=== PATIENT | female | born 1985 | race Caucasian/White ===

== ENCOUNTER 2019-01-21 08:18 | Outpatient (CLI) | payer OTHER, SELFPAY ==
[2019-01-21 09:03] LABS: HCT 40.6 % (36.0-46.0); HGB 12.9 g/dL (12.0-15.5); Mean Corp. HGB Concentration 31.8 g/dL (32.0-36.0); Mean Corpuscular Hemoglobin 26.1 pg (27.0-33.0); Mean Platelet Volume 11.1 fL (8.0-11.0); Platelet Count 313 x1000/uL (130-400); RBC 4.95 m/cumm (4.00-5.20); RBC Distribution Width 14.4 % (11.7-14.6); White Blood Cell Count 7.24 k/cumm (4.4-10.8)
[2019-01-21 10:00] LABS: ALT 23 U/L (12-78); AST 16 U/L (15-37); Albumin 3.7 g/dL (3.4-5.0); Alkaline Phosphatase 90 U/L (46-116); Anion Gap 7.4 mmol/L (3-11); BUN 13 mg/dL (7-18); Bilirubin, Total 0.6 mg/dL (0.2-1.0); CO2 28.6 mmol/L (21.0-32.0); CREATININE 0.75 mg/dL (0.55-1.02); Chloride 103 mmol/L (98-107); Cholesterol 189 mg/dL (50-200); Glucose 95 mg/dL (70-100); HDL Cholesterol 54 mg/dL (40-60); LDL CHOLESTEROL 120 mg/dL (<100); Potassium 4.5 mmol/L (3.5-5.1); Sodium 139 mmol/L (136-145); Total Protein 7.7 g/dL (6.4-8.2); Triglyceride 44 mg/dL (30-150)
[2019-01-21 10:31] LABS: TSH (W/Ref FT4) 1.39 uIU/mL (0.358-3.74); Vitamin B12 795 pg/mL (193-986)
== END 2019-01-21 08:38 ==
PROVIDERS: PCP Student in an Organized Health Care Education/Training Program; Visit Provider Student in an Organized Health Care Education/Training Program
DX: R03.0 Elevated blood-pressure reading, without diagnosis of hypertension (principal); Z13.220 Encounter for screening for lipoid disorders; R53.83 Other fatigue; Z86.39 Personal history of other endocrine, nutritional and metabolic disease; Z87.19 Personal history of other diseases of the digestive system
CPT/HCPCS: 36415; 80053; 80061; 83721; 85027; 82607; 84443

== ENCOUNTER 2019-01-27 01:14 | Outpatient (CLI) | payer OTHER, SELFPAY ==
--- NOTE | 2019-01-27 06:31 | DI.RAD_ITS ---
SYMPTOM/DIAGNOSIS: LT HIP PAIN, M25.552, ? BONY PATHOLOGY, MAY BE RELATED TO PRIOR ANKLE INJURY LEFT HIP AND PELVIS: No bony or joint abnormality is seen.
== END 2019-01-27 01:34 ==
PROVIDERS: PCP Student in an Organized Health Care Education/Training Program; Visit Provider Nurse Practitioner Adult Health
DX: M25.552 Pain in left hip (principal)
CPT/HCPCS: 73502

== ENCOUNTER 2019-08-14 00:10 | Outpatient (CLI) | payer OTHER, SELFPAY ==
[2019-08-14 11:08] LABS: Anion Gap 7.5 mmol/L (3-11); BUN 11 mg/dL (7-18); CO2 29.5 mmol/L (21.0-32.0); CREATININE 0.64 mg/dL (0.55-1.02); Calcium 9.1 mg/dL (8.5-10.1); Chloride 104 mmol/L (98-107); Glucose 86 mg/dL (70-100); Potassium 4.7 mmol/L (3.5-5.1); Sodium 141 mmol/L (136-145)
[2019-08-14 11:24] LABS: Ferritin 46 ng/mL (8-388); Magnesium 2.2 mg/dL (1.8-2.4)
[2019-08-16 07:14] LABS: Vitamin D 25 Total 29.6 ng/ml (30-100)
[2019-08-19 16:40] LABS: Insulin 5.1 uIU/mL (<29.0)
[2019-08-20 11:56] LABS: Testosterone, Free 0.39 ng/dL (0.06-1.00); Testosterone, Total 28 ng/dL (8-60)
== END 2019-08-14 00:30 ==
PROVIDERS: Internal Medicine; PCP Student in an Organized Health Care Education/Training Program; Visit Provider Student in an Organized Health Care Education/Training Program
DX: G43.909 Migraine, unspecified, not intractable, without status migrainosus (principal); R25.2 Cramp and spasm; E55.9 Vitamin D deficiency, unspecified; Z86.2 Personal history of diseases of the blood and blood-forming organs and certain disorders involving the immune mechanism; E28.8 Other ovarian dysfunction
CPT/HCPCS: 36415; 80048; 82306; 84402; 84403; 82728; 83525; 83735

== ENCOUNTER 2020-01-10 08:21 | Outpatient (CLI) | payer OTHER, SELFPAY ==
[2020-01-12 23:10] LABS: SARS-CoV-2 RNA Undetected (Undetected); SARS-CoV-2 Specimen Source Nasopharynx
== END 2020-01-10 08:41 ==
PROVIDERS: PCP Student in an Organized Health Care Education/Training Program; Visit Provider Student in an Organized Health Care Education/Training Program
DX: Z20.828 Contact with and (suspected) exposure to other viral communicable diseases (principal)
CPT/HCPCS: U0003

== ENCOUNTER 2020-01-11 08:28 | Outpatient (CLI) | payer OTHER, SELFPAY ==
[2020-01-14 21:19] LABS: SARS-CoV-2 RNA Undetected (Undetected); SARS-CoV-2 Specimen Source Nasopharynx
== END 2020-01-11 08:48 ==
PROVIDERS: PCP Student in an Organized Health Care Education/Training Program; Visit Provider Student in an Organized Health Care Education/Training Program
DX: Z20.828 Contact with and (suspected) exposure to other viral communicable diseases (principal)
CPT/HCPCS: U0003

== ENCOUNTER 2020-05-04 03:08 | Outpatient (CLI) | payer OTHER, SELFPAY ==
[2020-05-04 12:55] LABS: Abs Immature Grans 0.01 10^3/uL (0.0-0.06); Absolute Basophil Count 0.05 10^3/uL (0.0-0.2); Absolute Eosinophil Count 0.27 10^3/uL (0.0-0.7); Absolute Lymphocyte Count 2.31 10^3/uL (1.2-3.4); Absolute Monocyte Count 0.64 10^3/uL (0.1-0.8); Basophils % 0.6; Eosinophils % 3.5; HCT 40.1 % (36.0-46.0); HGB 12.8 g/dL (11.2-15.7); Immature Grans % 0.1; Lymphocytes % 29.7; MCH 26.8 pg (27.0-33.0); MCHC 31.9 % (32.0-36.0); MCV 84.1 fL (80-95); MPV 10.8 fL (8.0-11.0); Monocytes % 8.2; Neutrophils % 57.9; Platelet Count 319 10^3/uL (130-400); RBC 4.77 10^6/uL (3.93-5.22); RDW 13.1 % (11.7-14.6); RDW-SD 40.5 fL; WBC 7.78 10^3/uL (4.4-10.8)
[2020-05-04 13:58] LABS: ALT 18 U/L (14-59); AST 12 U/L (15-37); Albumin 3.8 g/dL (3.4-5.0); Alkaline Phosphatase 82 U/L (46-116); Anion Gap 7.8 mmol/L (3-11); BUN 12 mg/dL (7-18); Bilirubin, Total 0.5 mg/dL (0.2-1.0); CO2 28.2 mmol/L (21.0-32.0); CREATININE 0.64 mg/dL (0.55-1.02); Calcium 9.2 mg/dL (8.5-10.1); Chloride 104 mmol/L (98-107); Glucose 113 mg/dL (74-106); Potassium 4.5 mmol/L (3.5-5.1); Sodium 140 mmol/L (136-145); Total Protein 7.2 g/dL (6.4-8.2)
== END 2020-05-04 03:28 ==
PROVIDERS: PCP Student in an Organized Health Care Education/Training Program; Visit Provider Student in an Organized Health Care Education/Training Program
DX: E46 Unspecified protein-calorie malnutrition (principal); E86.0 Dehydration; Z87.19 Personal history of other diseases of the digestive system; K52.82 Eosinophilic colitis; R10.9 Unspecified abdominal pain; T78.40XA Allergy, unspecified, initial encounter; Z86.2 Personal history of diseases of the blood and blood-forming organs and certain disorders involving the immune mechanism; D50.9 Iron deficiency anemia, unspecified
CPT/HCPCS: 36415; 80053; 85025

== ENCOUNTER 2020-11-29 01:26 | Outpatient (CLI) | payer OTHER, SELFPAY ==
--- NOTE | 2020-11-29 07:15 | DI.US_ITS ---
EXAM: US BREAST LT COMPLETE CLINICAL HISTORY: Left breast mass,N63.20. TECHNIQUE: Complete ultrasound of the left breast was performed. COMPARISON: Today's diagnostic mammogram was reviewed. FINDINGS: At the 12 o'clock position there is a 4 x 3 millimeter microcyst. At the 8 o'clock position there is another microcyst measuring 3 x 3 millimeters. At the 4 o'clock position there is a small 5 x 3 millimeter slightly lobulated nodule exhibiting slig htly increased through transmission and apparently corresponding to her palpable finding. This is pr obably a fibroadenoma but requires appropriate follow-up. IMPRESSION: At the 4 o'clock position there is a small 5 x 3 millimeters slightly lobulated nodule which correspo nds to a palpable finding and is probably a small fibroadenoma. There by small microcysts at the 12 o'clock and 8 o'clock positions also noted. Appropriate follow-up is repeat breast ultrasound in 3 months.. Given the density of this patient's fibroglandular tissue I recommend at that time that this be a bilateral complete breast ultrasound ex am. BI-RADS Category 3 - 3 month - Probably Benign Finding: Recommend follow-up mammography in 3 months Breast Density - Category C - Heterogeneously dense Breast density Category C or D implies that the patient has dense breast tissue. Dense breast tissue can make it harder to find cancer on a mammogram. Dense breast tissue is also associated with an incr eased risk of breast cancer. This information about the result of the mammogram report was provided to the patient to raise their awareness. Use this report when you speak with the patient about their risks for breast cancer, which includes their family history. At that time, you may recommend additional screening tests (Ultrasoun d or MRI) as these tests may add significant information. A negative radiographic report should not delay biopsy if a dominant or clinically suspicious mass is present. Up to ten percent of cancers are not identified on mammography. A negative report may reinforce clinical impression. Adenosis and dense breasts may obscure an underlying neoplasm. False positive reports average 6 to 10%. Patient will receive a letter notifying them of these results.
--- NOTE | 2020-11-29 11:01 | DI.MAMMO_ITS ---
EXAM: MG MAMMO DIAGNOSTIC BI CLINICAL HISTORY: BASELINE,DIAGNOSTIC, LT BREAST MASS. TECHNIQUE: Unilateral spot mammographic images were obtained with 3D Tomosynthesistechnique and util izing computer aided detection (CAD). COMPARISON: None. This is a baseline diagnostic mammogram FINDINGS: The fibroglandular tissue is dense, this decreasing the sensitivity mammogram for finding in underlyi ng lesions. There are no CAD designations. There are no obvious spiculated masses nor malignant-appearing microcalcification groups in either br east. There are no significant focal radiographic findings in the area of clinical concern in the le ft breast. There is no significant architectural distortion or skin thickening-traction. IMPRESSION: 1. Dense bilateral fibroglandular tissue. No obvious radiographic evidence of malignancy. 2. Left breast ultrasound performed today reveals a 6 x 3 millimeter nodule at the 4 o'clock position which corresponds to a palpable finding and is probably a fibroadenoma. Two benign micro cysts were also noted on ultrasound at the 12 o'clock and 8 o'clock positions Appropriate follow-up is repeat breast ultrasound in 3 months, earlier if clinically indicated. Given the density of this patient's fibroglandular tissue on mammography and her left breast ultrasou nd findings today, I recommend that her three-month follow-up PA bilateral breast ultrasound examinat ion. BI-RADS Category 3 - 3 month - Probably Benign Finding: Recommend follow-up mammography in 3 months Breast Density - Category C - Heterogeneously dense Breast density Category C or D implies that the patient has dense breast tissue. Dense breast tissue can make it harder to find cancer on a mammogram. Dense breast tissue is also associated with an incr eased risk of breast cancer. This information about the result of the mammogram report was provided to the patient to raise their awareness. Use this report when you speak with the patient about their risks for breast cancer, which includes their family history. At that time, you may recommend additional screening tests (Ultrasoun d or MRI) as these tests may add significant information. A negative radiographic report should not delay biopsy if a dominant or clinically suspicious mass is present. Up to ten percent of cancers are not identified on mammography. A negative report may reinforce clinical impression. Adenosis and dense breasts may obscure an underlying neoplasm. False positive reports average 6 to 10%. Patient will receive a letter notifying them of these results.
== END 2020-11-29 01:27 ==
LOC: DI 01:27
PROVIDERS: PCP Student in an Organized Health Care Education/Training Program; Visit Provider Surgery
DX: N63.23 Unspecified lump in the left breast, lower outer quadrant (principal); N60.12 Diffuse cystic mastopathy of left breast
CPT/HCPCS: 76642; 77062; 77066; G0279

== ENCOUNTER 2021-02-26 00:55 | Outpatient (CLI) | payer OTHER, SELFPAY ==
--- NOTE | 2021-02-26 | DI.US_ITS ---
Exam(s) US BREAST LT COMPLETE US BREAST RT COMPLETE EXAM: US BREAST BILATERAL COMPLETE CLINICAL HISTORY: Follow up on Breast fibroadenoma,BREAST MASS, N63.20, LT. TECHNIQUE: Complete ultrasound of both breast was performed including all 4 quadrants, the retroareo lar region, and the axillary regions COMPARISON: Prior baseline mammogram and left breast ultrasound performed 11/29/2020 reviewed.. FINDINGS: LEFT BREAST ULTRASOUND: At the 12 o'clock position there is a 4 x 2 millimeter microcyst again noted At the 8 o'clock position the previously present microcyst is no longer seen. At the 4 o'clock position the previously described 5 x 3 millimeters slightly lobulated well-defined nodule appears unchanged. This is either a small fibroadenoma or hemorrhagic microcyst. It has not increased or decreased in size. No significant findings in the immediate retroareolar region. No prominent abnormal looking lymph no cookie in the axilla. RIGHT BREAST ULTRASOUND: At the 12 o'clock position there is a 6 x 3 millimeters simple microcyst. At the 1 o'clock position there is a 7 x 4 millimeter microcyst. At the 2 o'clock position there is a 5 x 3 millimeter microcyst. At the 10 o'clock position there is a 3 millimeter microcyst. Also at 10 o'clock position is a 6 x 3 millimeters slightly lobulated wider than taller nodule is sli ghtly increased through transmission which is either hemorrhagic microcyst or small fibroadenoma. At the 11 o'clock position there is a 6 x 3 millimeter microcyst IMPRESSION: 1. Stable appearance of the previously described palpable 5 x 3 millimeter lobulated nodule 4 o'clock position of the left breast which is either a small fibroadenoma or hemorrhagic microcyst; less like ly more ominous pathology. 2. Today's ultrasound of the opposite-right breast reveals multiple benign microcysts and also a is w ider than taller 6 x 3 millimeter finding at the 10 o'clock position which is either hemorrhagic micr ocyst or fibroadenoma. Appropriate follow-up is repeat bilateral breast ultrasound in 6 months, with earlier imaging if a se lf detected breast change is noted. BI-RADS Category 3 - 6 month - Probably Benign Finding: Recommend follow-up BILATERAL BREAST ULTRASOU ND in 6 months Breast Density - Category C - Heterogeneously dense Breast density Category C or D implies that the patient has dense breast tissue. Dense breast tissue can make it harder to find cancer on a mammogram. Dense breast tissue is also associated with an incr eased risk of breast cancer. This information about the result of the mammogram report was provided to the patient to raise their awareness. Use this report when you speak with the patient about their risks for breast cancer, which includes their family history. At that time, you may recommend additional screening tests (Ultrasoun d or MRI) as these tests may add significant information. A negative radiographic report should not delay biopsy if a dominant or clinically suspicious mass is present. Up to ten percent of cancers are not identified on mammography. A negative report may reinforce clinical impression. Adenosis and dense breasts may obscure an underlying neoplasm. False positive reports average 6 to 10%. Patient will receive a letter notifying them of these results.
== END 2021-02-26 01:15 ==
PROVIDERS: PCP Student in an Organized Health Care Education/Training Program; Visit Provider Surgery
DX: N63.23 Unspecified lump in the left breast, lower outer quadrant (principal); N60.12 Diffuse cystic mastopathy of left breast; N63.11 Unspecified lump in the right breast, upper outer quadrant; N60.11 Diffuse cystic mastopathy of right breast
CPT/HCPCS: 76642

== ENCOUNTER 2021-12-19 01:46 | Outpatient (CLI) | payer OTHER, SELFPAY ==
--- NOTE | 2021-12-19 06:30 | DI.MAMMO_ITS ---
Exam(s) MAMMO SCREENING EXAM: MAMMO SCREENING CLINICAL HISTORY: screening,Z12,39. TECHNIQUE: Bilateral full field digital CC and MLO mammographic images were obtained with 3D tomosyn thesis and utilizing computer aided detection (CAD). COMPARISON: Prior mammograms were reviewed, the most recent being November 2020. Prior ultrasound examinations reviewed, most recent being 10/26/2021. That study revealed an unchang ed 5 x 3 millimeter nodule at the 4 o'clock position of the left breast. Also revealed benign-appear ing findings in the opposite-right breast FINDINGS: Fibroglandular tissue is again noted be moderately dense, this somewhat decreasing the sensitivity of the mammogram for finding hidden underlying lesions. There are no new spiculated masses nor malignant appearing microcalcification groups. There is no significant architectural distortion nor skin thickening-retraction. IMPRESSION: Dense bilateral foraminal and tissue. No obvious radiographic evidence of malignancy Given the density of her fibroglandular tissue and prior breast ultrasound findings I recommend foll ow-up bilateral breast ultrasound in 6 months, earlier if a self detected breast changes noted. BI-RADS Category 3 - 6 month - Probably Benign Finding: Recommend follow-up mammography in 6 months Breast Density - Category C - Heterogeneously dense Breast density Category C or D implies that the patient has dense breast tissue. Dense breast tissue can make it harder to find cancer on a mammogram. Dense breast tissue is also associated with an incr eased risk of breast cancer. This information about the result of the mammogram report was provided to the patient to raise their awareness. Use this report when you speak with the patient about their risks for breast cancer, which includes their family history. At that time, you may recommend additional screening tests (Ultrasoun d or MRI) as these tests may add significant information. A negative radiographic report should not delay biopsy if a dominant or clinically suspicious mass is present. Up to ten percent of cancers are not identified on mammography. A negative report may reinforce clinical impression. Adenosis and dense breasts may obscure an underlying neoplasm. False positive reports average 6 to 10%. Patient will receive a letter notifying them of these results.
== END 2021-12-19 02:06 ==
PROVIDERS: PCP Student in an Organized Health Care Education/Training Program; Visit Provider Surgery
DX: Z12.31 Encounter for screening mammogram for malignant neoplasm of breast (principal); R92.8 Other abnormal and inconclusive findings on diagnostic imaging of breast
CPT/HCPCS: 77063; 77067

== ENCOUNTER 2022-01-21 14:23 | Outpatient (REF) | payer OTHER, SELFPAY ==
--- NOTE | 2022-01-21 13:45 | PAPFT_PTH ---
PATIENT: Rosemary Jackson LOC: [facility] U#:[id number] AGE/SX: 36/F ROOM: RE01/21/[address]: Jo Medeiros : 1985 BED: DIS: 01/21/2022 SPEC #: [id number] RECD: 01/21/22 17:40 STATUS: MURRAY REQ #: [id number] ÁNGEL: 01/21/22 13:[address]: Jo Medeiros DEPT: [facility] Cytology RECD BY: Mary Guillermo ENTERED: 01/21/22 17:40 SP TYPE: PAPFT OTHR DR: Wanda Landrum DO Tissues: 1 - CX/ENDOCX FOR PAP SMEARS Procedures: PAP THIN PREP/UVM Screening HPV DNA PROBE Comments: [id number]
== END 2022-01-21 14:24 | disposition home or self-care (01) ==
LOC: LBN 14:23
PROVIDERS: PCP Student in an Organized Health Care Education/Training Program; Visit Provider Obstetrics & Gynecology Gynecology
DX: Z12.4 Encounter for screening for malignant neoplasm of cervix (principal); Z11.51 Encounter for screening for human papillomavirus (HPV)
CPT/HCPCS: 88142; 87624

== ENCOUNTER → 2022-03-13 08:33 | Outpatient (CLI) | payer OTHER, SELFPAY ==
--- NOTE | 2022-03-13 07:30 | DI.NM_ITS ---
Exam(s) NM HEPATOBILIARY CCK GRP EXAM: NM HEPATOBILIARY CCK GRP CLINICAL HISTORY: Postprandial pain and nausea,r11.0,r10.11. TECHNIQUE: Injected dose: 4.9 mCi Tc-99 mebrofenin Initial dynamic images: 60 minutes Post-Gallbladder fillin.02 mcg/kg CCK intravenously over a 15min infusion. Addition images: 20 minute dynamic during CCK administration. COMPARISON: US US ABDOMEN LIMITED from 03/12/2022 FINDINGS: There is normal uptake and excretion of radiopharmaceutical by the liver and ectopic is seen within t he gallbladder lumen at 16 minutes post injection. Following CCK infusion there is a low normal gallbladder ejection fraction of 46 percent demonstrated . Lower limits normal in our department is 35 percent. IMPRESSION: Negative study. No evidence of obstruction of the cystic duct and no evidence of obvious gallbladder dysfunction
== END ==
PROVIDERS: PCP Student in an Organized Health Care Education/Training Program; Visit Provider Surgery
DX: R10.11 Right upper quadrant pain (principal); R11.0 Nausea
CPT/HCPCS: 78227

== ENCOUNTER 2022-03-17 20:16 | Outpatient (REF) | payer OTHER, SELFPAY ==
[2022-03-17 20:24] LABS: Source Nasal/Nares
[2022-03-17 20:27] LABS: Abs Immature Grans 0.02 10^3/uL (0.0-0.06); Absolute Basophil Count 0.03 10^3/uL (0.0-0.2); Absolute Lymphocyte Count 2.81 10^3/uL (1.2-3.4); Absolute Monocyte Count 0.83 10^3/uL (0.1-0.8); Absolute Neutrophil Count 7.66 10^3/uL (1.2-6.7); Basophils % 0.3; Eosinophils % 1.7; HCT 39.6 % (36.0-46.0); HGB 12.4 g/dL (11.2-15.7); Immature Grans % 0.2; Lymphocytes % 24.3; MCH 26.4 pg (27.0-33.0); MCHC 31.3 % (32.0-36.0); MCV 84 fL (80-95); MPV 11.3 fL (8.0-11.0); Monocytes % 7.2; Neutrophils % 66.3; Platelet Count 310 10^3/uL (130-400); RDW 12.8 % (11.7-14.6); RDW-SD 39.3 fL; WBC 11.56 10^3/uL (4.4-10.8)
[2022-03-17 20:52] LABS: ALT 20 U/L (14-59); AST 12 U/L (15-37); Albumin 3.9 g/dL (3.4-5.0); Alkaline Phosphatase 71 U/L (46-116); Anion Gap 8.3 mmol/L (3-11); BUN 18 mg/dL (7-18); Bilirubin, Direct 0.1 mg/dL (0.0-0.2); Bilirubin, Total 0.4 mg/dL (0.2-1.0); CO2 28.7 mmol/L (21.0-32.0); CREATININE 0.8 mg/dL (0.55-1.02); Calcium 8.9 mg/dL (8.5-10.1); Chloride 102 mmol/L (98-107); Glucose 102 mg/dL (74-106); Lipase 71 U/L (73-393); Potassium 4.2 mmol/L (3.5-5.1); Sodium 139 mmol/L (136-145); Total Protein 7.4 g/dL (6.4-8.2)
[2022-03-18 13:07] LABS: COVID-19 PCR Negative (Negative)
[2022-03-20 13:14] LABS: Lab Add On Test DONE
== END 2022-03-17 20:17 | disposition home or self-care (01) ==
LOC: LBN 20:16
PROVIDERS: PCP Student in an Organized Health Care Education/Training Program; Visit Provider Surgery
DX: R10.11 Right upper quadrant pain (principal); R79.89 Other specified abnormal findings of blood chemistry; Z20.822 Contact with and (suspected) exposure to COVID-19; Z01.818 Encounter for other preprocedural examination; Z01.812 Encounter for preprocedural laboratory examination
CPT/HCPCS: 80048; 80076; 83690; 87635; 83735; 85025; 86618; 86674; 86784

== ENCOUNTER 2022-03-20 06:20 | Day surgery (SDC) | payer OTHER, SELFPAY ==
--- NOTE | 2022-03-20 06:19 | W.PM.ENDDOP ---
Date of service: 03/20/22 Time of Service: 07:47 Endoscopy Report DATE OF PROCEDURE: 03/20/22 PRE-OP DIAGNOSIS: Abdominal pain POST-OP DIAGNOSIS: same (gastritis, esophagitis) PROCEDURE: EGD with biopsies SURGEON: Andree Hale ANESTHESIA TYPE: General:No Airway PATHOLOGY: other (duodenal biopsy, antrum bx, GE junction bx) COMPLICATIONS: None DISPOSITION: same day INDICATIONS: Rosemary is a 36yo patient with subacute RUQ discomfort, with bloating, nausea, chills, and episodes of diarrhea... now on week 5 of feeling poorly. She is c/o fatigue, myalgia and loss of appetite. She has lost some weight and is developing an aversion to meals. Her US and HIDA were negative We discussed starting with an EGD to look for ulcers. The procedure was explained as well as risks and benefits Risks, benefits and complications have been reviewed. Complications include but are not limited to bleeding, pain, perforation, sore throat, aspiration, and adverse reaction to the medications. Questions were entertained and answered to their satisfaction and they wished to proceed. No guarantees were given or implied. Proceed with EGD under sedation FINDINGS: inflammation in the stomach and shallow ulcer at the pylorus PROCEDURE DESCRIPTION: After informed consent was obtained the patient was take to the procedure room and placed in a supine position. Monitors were applied and a time out was done. The patients name, date of , procedure type, allergies to medications and metal in their body was reviewed. A bite block was placed and the patient was sedated. Once sedated and comfortable the gastroscope was advanced through the oropharynx which was grossly normal into the esophagus. The proximal and mid-esophagus were normal. In the distal esophagus there was mild inflammation noted. The scope was advanced into the stomach and through the pylorus into the 3rd portion of the duodenum. The duodenum was noted to be normal. Biopsies were done to rule out celiac disease. The scope was retracted back into the stomach. There were multiple small, benign appearing polyps. A few of them were biopsied. Biopsies of the antrum were done to rule out H. pylori. There was one shallow ulcer at the pylorus which was biopsied. The scope was retroflexed. The cardia and fundus were noted to be normal. The scope was retracted back into the esophagus and biopsies were done of the GE junction to rule out Us's. The Z line was irregular. The GE junction was at 35 cm. The scope was removed and the patient was woken up and taken back to [facility] in stable condition.
--- NOTE | 2022-03-20 06:22 | HPE_ITS ---
Assessment and Plan Assessment and plan (1) RUQ discomfort: Status: Acute Assessment and plan: Rosemary is a 36yo patient with subacute RUQ discomfort, with bloating, nausea, chills, and episodes of diarrhea... now on week 5 of feeling poorly. She is c/o fatigue, myalgia and loss of appetite. She has lost some weight and is developing an aversion to meals. Her US and HIDA were negative We discussed starting with an EGD to look for ulcers. The procedure was explained as well as risks and benefits Risks, benefits and complications have been reviewed. Complications include but are not limited to bleeding, pain, perforation, sore throat, aspiration, and adverse reaction to the medications. Questions were entertained and answered to their satisfaction and they wished to proceed. No guarantees were given or implied. Proceed with EGD under sedation (2) Diarrhea: Status: Acute (3) Nausea: Status: Acute History of Present Illness Narrative: Rosemary is a 36yo patient with subacute RUQ discomfort, with bloating, nausea, chills, and episodes of diarrhea... now on week 5 of feeling poorly. She is c/o fatigue, myalgia and loss of appetite. She has lost some weight and is developing an aversion to meals. US/HIDA were both normal. 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 now developing diarrhea. She denies a hx of chest pain, palpitations or SOB with walking. Review of Systems All systems reviewed & are unremarkable except as noted in HPI and below PFSH All Active Problems Change in bowel function (Acute) Diarrhea (Acute) Loose stool, multiple BMs, with intermittent diarrhea Migraine headache (Chronic) Vitamin D deficiency (Acute) Genital herpes (Acute) Hx of corneal abrasion (Chronic 08/2017) Ophtho ruled out Pit Adenoma, but noted OPTIC NERVE CUPPING. FOllow up needed. 07/07 FU scanned Candidiasis (Chronic) Near-monthly with menses.. Rosacea (Acute) Mild, seen by Derm 08/2019. Encounter for screening for other viral diseases (Acute) Abnormalities of hair (Acute) 08/29/20 Dr Rosales Hirsutism (Acute) 08/29/20 Dr Rosales - laser treatment Left breast mass (Acute) Menses, irregular (Acute) RUQ discomfort (Acute) Nausea (Acute) Postprandial distress syndrome (Acute) Medical History Bladder infection Colitis GERD (gastroesophageal reflux disease) IBS (irritable bowel syndrome) Pt. denies this Whooping cough Family History Father Hypertension Stroke Afib Hepatitis A Diabetes Mother Hypertension Multiple sclerosis Osteoarthritis Paternal Grandfather CAD (coronary artery disease) Myocardial infarction Diabetes Hypertension Paternal Grandmother Hypertension ESRD (end stage renal disease) Maternal Grandfather No problems noted. 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, [employer] Current gender identity: female What is your relationship status?: Panel score (0-1 are the most socially isolated patients): 1 What type of physical activity do you participate in: none Do you feel safe at home: Yes Do you feel safe in your relationship?: Yes History History 0 Para Hx # Term Pregnancies Multiple births Hx # Pregnancies Ectopic pregnancies AB induced Hx Number of Living Children AB spontaneous Meds Allergies and Home Medications Allergies Allergy/AdvReac Type Severity Reaction Status Date / Time Penicillins Allergy Severe Anaphylaxis Verified 03/20/22 06:29 Sulfa (Sulfonamide Allergy Rash Verified 03/20/22 06:29 Antibiotics) Home Medications Medication Instructions Recorded Confirmed Type carboxymethylcellulose sodium 1 % 1 drp ophthalmic (eye) 4-6XD PRN 12/24/18 03/19/22 History eye liquid gel drops (Lubricant Dry Eye Relief) cetirizine 10 mg tablet (Zyrtec) 10 mg PO DAILY 12/24/18 03/20/22 History artificial tears(hypromellose) 0.3 1 drp ophthalmic (eye) HS 09/16/19 03/19/22 History % eye gel (Systane Gel) biotin 5 mg tablet 5 mg PO DAILY 09/16/19 03/20/22 History cholecalciferol (vitamin D3) 25 2,000 unit PO DAILY 09/16/19 03/20/22 History mcg (1,000 unit) capsule vitamins no.121-iron 28 1 tab PO DAILY 09/16/19 03/20/22 History mg-folic acid 800 mcg tablet cyclobenzaprine 10 mg tablet 10 mg PO HS PRN muscle spasm #10 11/26/19 03/19/22 Rx tabs fluconazole 150 mg tablet 150 mg PO Q72H PRN recurrent 10/10/20 03/19/22 Rx vaginal candidiasis assoc with menses. #10 tabs esomeprazole magnesium 20 mg 20 mg PO DAILY #90 caps 07/25/21 03/20/22 Rx capsule,delayed release (Nexium) metformin 500 mg tablet 500 mg PO BID #60 tabs 01/21/22 03/19/22 Rx ondansetron 4 mg disintegrating 1 tab PO PRN PRN 03/20/22 03/20/22 History tablet Exam Const General: comfortable and no acute distress Orientation: alert and oriented x3 HENMT Head: normocephalic and atraumatic Resp Effort & Inspection: normal respiratory effort Auscultation: clear to auscultation bilaterally Cardio Rate: regular rate Rhythm: regular rhythm Heart Sounds: no gallops, no murmurs and no rubs GI Palpation: soft, no hepatosplenomegaly and tender in the epigastrum and in the RUQ
--- NOTE | 2022-03-20 06:24 | ANES.PREOP_ITS ---
General Info Date of Service Date Performed: 03/20/22 Height: 5 ft 3.5 in Weight: 77.337 kg Body Mass Index (BMI): 29.7 Surgical Procedure: Operation Date: 03/20/22 07:35 Proposed Procedure Side Surgeon p Gastroscopy Andree Hale MD Meds Allergies and Home Medications Allergies Allergy/AdvReac Type Severity Reaction Status Date / Time Penicillins Allergy Severe Anaphylaxis Verified 03/20/22 06:29 Sulfa (Sulfonamide Allergy Rash Verified 03/20/22 06:29 Antibiotics) Home Medication Medication Instructions Recorded carboxymethylcellulose sodium 1 % 1 drp ophthalmic (eye) 4-6XD PRN 12/24/18 eye liquid gel drops (Lubricant Dry Eye Relief) cetirizine 10 mg tablet (Zyrtec) 10 mg PO DAILY 12/24/18 artificial tears(hypromellose) 0.3 1 drp ophthalmic (eye) HS 09/16/19 % eye gel (Systane Gel) biotin 5 mg tablet 5 mg PO DAILY 09/16/19 cholecalciferol (vitamin D3) 25 2,000 unit PO DAILY 09/16/19 mcg (1,000 unit) capsule vitamins no.121-iron 28 1 tab PO DAILY 09/16/19 mg-folic acid 800 mcg tablet cyclobenzaprine 10 mg tablet 10 mg PO HS PRN muscle spasm #10 11/26/19 tabs fluconazole 150 mg tablet 150 mg PO Q72H PRN recurrent 10/10/20 vaginal candidiasis assoc with menses. #10 tabs esomeprazole magnesium 20 mg 20 mg PO DAILY #90 caps 07/25/21 capsule,delayed release (Nexium) metformin 500 mg tablet 500 mg PO BID #60 tabs 01/21/22 ondansetron 4 mg disintegrating 1 tab PO PRN PRN 03/20/22 tablet Current Visit Medications: Current Medications Generic Name Dose Route Start Last Admin Trade Name Freq PRN Reason Stop Dose Admin Ringer's Solution 1,000 mls @ 80 mls/hr 03/20/22 06:00 IV 04/18/22 23:59 INFUSION QUINTON IV Miscellaneous Supplies 1 each 03/20/22 06:00 Iv Access IV 04/18/22 23:59 DIRECTED QUINTON Sodium Chloride 0 ml 03/20/22 06:00 Normal Saline Flush 10 Ml Syr IV 04/18/22 23:59 PRN PRN Sodium Chloride 0 ml 03/20/22 06:00 Normal Saline 10 Ml Vial IJ 04/18/22 23:59 DIRECTED PRN Sterile Water 0 ml 03/20/22 06:00 Water,Injection,Sterile 10 Ml Vial IJ 04/18/22 23:59 DIRECTED PRN PFSH Active Problems Active Problems: Problem Status Onset Code Change in bowel function R19.8 Diarrhea R19.7 Migraine headache G43.909 Vitamin D deficiency E55.9 Genital herpes A60.00 History of colitis 2016 Z87.19 Hx of corneal abrasion 08/2017 Z87.828 Candidiasis B37.9 Rosacea L71.9 Encounter for screening for other viral diseases Z11.59 Abnormalities of hair L67.9 Hirsutism L68.0 Left breast mass N63.20 Menses, irregular N92.6 RUQ discomfort R10.11 Nausea R11.0 Postprandial distress syndrome K30 Medical History Medical History Bladder infection Colitis GERD (gastroesophageal reflux disease) IBS (irritable bowel syndrome) Pt. denies this Whooping cough Tobacco Smoking/Tobacco Use Status: Never Alcohol Alcohol Intake: current Alcohol intake frequency: a few times a month Alcohol type: wine Substance Use Substance use: Never Substance use type: does not use Prental History History 0 Para Hx # Term Pregnancies Multiple births Hx # Pregnancies Ectopic pregnancies AB induced Hx Number of Living Children AB spontaneous Vital Signs and Lab Results Lab Results Blood Type / Crossmatch: No Data to Display Complete Blood Count: White Blood Count 11.56 10^3/uL (4.4-10.8) H 03/17/22 19:50 Red Blood Count 4.70 10^6/uL (3.93-5.22) 03/17/22 19:50 Hemoglobin 12.4 g/dL (11.2-15.7) 03/17/22 19:50 Hematocrit 39.6 % (36.0-46.0) 03/17/22 19:50 Platelet Count 310 10^3/uL (130-400) 03/17/22 19:50 Complete Metabolic Panel: Sodium Level 139 mmol/L (136-145) 03/17/22 19:50 Potassium Level 4.2 mmol/L (3.5-5.1) 03/17/22 19:50 Chloride Level 102 mmol/L (98-107) 03/17/22 19:50 Carbon Dioxide Level 28.7 mmol/L (21.0-32.0) 03/17/22 19:50 Blood Urea Nitrogen 18 mg/dL (7-18) 03/17/22 19:50 Creatinine 0.8 mg/dL (0.55-1.02) 03/17/22 19:50 Estimated GFR/1.73 m2 >= 60.00 (mL/min/1.73m2) 03/17/22 19:50 Magnesium Level 2.0 mg/dL (1.8-2.4) 03/17/22 19:50 Calcium Level 8.9 mg/dL (8.5-10.1) 03/17/22 19:50 Albumin 3.9 g/dL (3.4-5.0) 03/17/22 19:50 Glucose Level 102 mg/dL (74-106) 03/17/22 19:50 Liver Function Panel: Alanine Aminotransferase (ALT/SGPT) 20 U/L (14-59) 03/17/22 19: 50 Aspartate Amino Transf (AST/SGOT) 12 U/L (15-37) L 03/17/22 19: 50 Coagulation Panel: No Data to Display Cardiac Panel: No Data to Display Arterial Blood Gas: No Data to Display Venous Blood Gas: No Data to Display Pancreas Panel: Lipase 71 U/L (73-393) 03/17/22 19:50 Thyroid Panel: No Data to Display Infectious Disease: Coronavirus (COVID-19)(PCR) Negative (Negative) 03/17/22 19:33 Coronavirus 2019 Source Nasal/Nares 03/17/22 19:33 Blood Cultures: No Data to Display Toxicology Panel: No Data to Display Panel: No Data to Display Anesthesia Assessment and Plan Anesthesia History Personal History: No History of Anesthesia Complications Family History: No Family History of Anesthesia Complications Exercise Tolerance Exercise Tolerance: Metabolic Equivalents>4 Pertinent Negatives Pertinent Negatives: No Symptoms of GERD, No Major Cardiovascular Symptoms or Complaints, No Major Pulmonary Symptoms or Complaints and No History of CVA/TIA Cardiac & Pulmonary Exam Cardiac Exam: Normal S1/S2 Heart Sounds Pulmonary Exam: Clear Bilateral Breath Sounds Implantable Cardiac Device Does patient have a Pacemaker or an ICD?: No Airway Exam Known Difficult Airway: No Mallampati Class: 3 Mouth Opening: Normal (> 3cm) Thyromental Distance: Less than 3 cm Neck Range of Motion: Full ROM Neck Circumference: Normal Teeth Condition: Normal Dentition ASA Classification ASA Score: ASA 2 Emergency Case?: No NPO Status NPO Status: NPO Clears >2 hours, Solids >8 hours Status Status: Negative HCG Anesthesia Plan Resuscitation Status: Full Code Anesthesia Technique: General Anesthesia Airway Planned: Natural Airway Monitors Used: Standard Monitors
--- NOTE | 2022-03-20 06:29 | W.PM.DSUDISC ---
Discharge Plan Disposition Patient Disposition: HOME Condition: Good Discharge Details Reason For Visit: EGD Attending Provider: Andree Hale Primary Care Provider: Wanda Landrum Home Meds and New Rx's Prescriptions: New sucralfate [Carafate] 1 gram tablet 1 g PO QACHS 14 Days Qty: 56 0RF Rx Instructions: Take before meals and at bedtime Continued cetirizine [Zyrtec] 10 mg tablet 10 mg PO DAILY Lubricant Dry Eye Relief 1 % drops, liquid gel 1 drp OP 4-6XD PRN PNV no.[id number] acid 28 mg iron- 800 mcg tablet 1 tab PO DAILY Label Comments: Chewable metformin 500 mg tablet 500 mg PO BID Qty: 60 3RF biotin 5 mg tablet 5 mg PO DAILY Rx Instructions: Pt uses chews. cholecalciferol (vitamin D3) 1,000 unit capsule 2,000 unit PO DAILY Label Comments: Chewable Systane Gel 0.3 % gel 1 drp OP HS Label Comments: 09/15/19 Opthalmology recommended cyclobenzaprine 10 mg tablet 10 mg PO HS PRN (Reason: muscle spasm) Qty: 10 1RF fluconazole 150 mg tablet 150 mg PO Q72H PRN (Reason: recurrent vaginal candidiasis assoc with menses.) Qty: 10 5RF Rx Instructions: take one tablet with onset of sx, may repeat in 72hrs if sx persist. ondansetron 4 mg tablet,disintegrating 1 tab PO PRN PRN Changed esomeprazole magnesium [Nexium] 20 mg capsule,delayed release(DR/EC) 40 mg PO DAILY Qty: 90 3RF Discharge Instructions Instructions: Diet for Stomach Ulcers and Gastritis (ED), Gastritis (DC), Gastric Polyps (DC) Additional Instructions: Findings: mild inflammation in the stomach, small ulcer above the pylorus Follow up: I will chat with you as soon as I have your biopsy results Please call if you develop: fevers >101.5 Nausea or Vomiting Abdominal pain that is not transient Rectal bleeding that is more then a tbsp A hard abdomen and inability to pass gas DAY SURGERY UNIT POST ENDOSCOPY INSTRUCTIONS Instructions for everyone who is given Anesthesia: For your safety, please do the following for the next 24 Hours: a. Do not drive or operate dangerous equipment b. Do not drink alcohol beverages or use any recreational drugs for the first 24 hours or while taking pain medications. The medications in your body may have a reaction that can be dangerous. c. Do not make any important decisions or sign any important papers 1. Generally there are no restrictions on your activity after a day or so has gone by, but you may feel a bit fatigued for a few days. 2. After you arrive home you may have a light meal and return to a normal diet as you can tolerate it without feeling sick to your stomach. 3. After surgery, you may feel pain or discomfort. This should be only transient, but if it persists please contact your doctor. 4. If there are any questions regarding the findings of your procedure, please feel free to contact your doctor. 6. If you are unable to contact your doctor with a problem, contact the hospital at [phone]. 7. Continue all your regular medications unless directed otherwise. I understand the above instructions and have no questions. Signature of Patient or Responsible Adult Escort Date/Time Name of Responsible Adult Escort Signature of Nurse Date/Time Activity:: Activity as Tolerated Diet:: low acid Discharge Orders Discharge Orders: Discharge Order (Routine); Ordered 03/20/22 Ordered By: Andree Hale DS: Diagnosis Discharge Diagnosis (1) RUQ discomfort: Status: Acute (2) Diarrhea: Status: Acute (3) Nausea: Status: Acute
[2022-03-20 06:32] VITALS: BP 116/91; PULSE 84; RESP 16; TEMP 37; O2SAT 100
[2022-03-20] MEDS: Lactated Ringers 1,000 ML 80 ML IV (06:50)
[2022-03-20 06:52] VITALS: BMI 29.7
--- NOTE | 2022-03-20 07:31 | STOM_PTH ---
PATIENT: Rosemary Jackson LOC: [facility] U#:[id number] AGE/SX: 36/F ROOM: RE03/20/[address]: Andree Hale MD : 1985 BED: DIS: 03/20/2022 SPEC #: [id number] RECD: 03/20/22 12:44 STATUS: MURRAY REQ #: [id number] ÁNGEL: 03/20/22 07:[address]: Andree Hale DEPT: Surgical Specimen RECD BY: Mary Guillermo ENTERED: 03/20/22 12:46 SP TYPE: STOMACH OTHR DR: Wanda Landrum DO Tissues: 1 - BIOPSY BOWEL 2 - STOMACH BIOPSY 3 - STOMACH BIOPSY 4 - STOMACH BIOPSY 5 - ESOPHAGUS BIOPSY Procedures: GROSS AND MICRO LEVEL 4 Comments: [id number]
[2022-03-20 07:42] VITALS: BP 118/89; PULSE 89; RESP 16; TEMP 36.1; O2SAT 97
[2022-03-20 08:19] VITALS: BP 130/86; PULSE 75; RESP 16; TEMP 37; O2SAT 100
[2022-03-20 08:48] LABS: Abs Immature Grans 0.01 10^3/uL (0.0-0.06); Absolute Basophil Count 0.03 10^3/uL (0.0-0.2); Absolute Lymphocyte Count 1.51 10^3/uL (1.2-3.4); Absolute Monocyte Count 0.47 10^3/uL (0.1-0.8); Absolute Neutrophil Count 4.27 10^3/uL (1.2-6.7); Basophils % 0.5; Eosinophils % 1.6; HCT 39.3 % (36.0-46.0); HGB 12.4 g/dL (11.2-15.7); Immature Grans % 0.2; Lymphocytes % 23.6; MCH 26.7 pg (27.0-33.0); MCHC 31.6 % (32.0-36.0); MCV 85 fL (80-95); MPV 11.2 fL (8.0-11.0); Monocytes % 7.4; Neutrophils % 66.7; Platelet Count 279 10^3/uL (130-400); RBC 4.64 10^6/uL (3.93-5.22); RDW 12.8 % (11.7-14.6); RDW-SD 39.5 fL; WBC 6.39 10^3/uL (4.4-10.8)
--- NOTE | 2022-03-20 08:54 | W.ANESPOSTOP ---
Postoperative Evaluation Date, Time and Location Date Performed: 03/20/22 Time Performed: 08:54 Patient Location: Day Surgery Unit Vital Signs Most Recent Imported Vital Signs: Most Recent Vital Signs Temp Pulse Resp BP Pulse Ox 37 C 75 16 130/86 100 03/20/22 08:19 03/20/22 08:19 03/20/22 08:19 03/20/22 08:19 03/20/22 08:19 Pain Score Most Recent Pain Score: Most Recent Pain Score Pain Level 4 03/20/22 08:19 Assessment Mental Status: Awake (Alert & Oriented to Patient Baseline) Airway and Respiratory Function: Patent airway with normal (patient baseline) respiratory exam Cardiovascular Function: Hemodynamically Stable Hydration Status: Adequately Hydrated Nausea & Vomiting: No Nausea or Vomiting Pain: Pt. Denies Any Pain Peripheral Nerve Block: Patient did not receive a nerve block Postoperative Comments:: Patient seen earlier today prior to discharge. Delay on documentation due to lack of postoperative vital signs inputed into EMR. Patient questions answered and was appropriate to go home.
[2022-03-20 22:39] LABS: CRP, High Sensitivity 0.86 mg/L (See Note)
[2022-03-21 11:02] LABS: Lyme Ab w Rflx to Lyme Confirm Negative (Negative)
[2022-03-21 20:08] LABS: Trichinella Antibody IgG Negative (Negative)
[2022-03-23 14:27] LABS: Anaplasma phagocytophilum Negative (Negative); B. miyamotoi PCR Negative (Negative); Babesia divergens/MO-1 Negative (Negative); Babesia duncani Negative (Negative); Babesia microti Negative (Negative); Ehrlichia chaffeensis Negative (Negative); Ehrlichia ewingii/canis Negative (Negative); Ehrlichia muris eauclairensis Negative (Negative)
== END 2022-03-20 08:56 | disposition home or self-care (01) ==
PROVIDERS: PCP Student in an Organized Health Care Education/Training Program; Visit Provider Surgery
PROC: 0DJ68ZZ Inspection of Stomach, Via Natural or Artificial Opening Endoscopic (ICD-10-PCS; CPT 43235; principal; 2022-03-20 07:30)
DX: K25.9 Gastric ulcer, unspecified as acute or chronic, without hemorrhage or perforation (principal); R19.7 Diarrhea, unspecified; K31.7 Polyp of stomach and duodenum; K29.70 Gastritis, unspecified, without bleeding; K20.90 Esophagitis, unspecified without bleeding; G43.909 Migraine, unspecified, not intractable, without status migrainosus; E55.9 Vitamin D deficiency, unspecified; K31.89 Other diseases of stomach and duodenum; K22.89 Other specified disease of esophagus
CPT/HCPCS: 43239; 36415; 81025; 86141; 87798; 88305; 85025; 86618; 86674; 86784

== ENCOUNTER 2022-03-21 17:44 | Outpatient (REF) | payer OTHER, SELFPAY ==
[2022-03-21 21:32] LABS: C Diff PCR Negative (Negative)
[2022-03-22 11:45] LABS: Campylobacter PCR Negative (Negative); Salmonella PCR Negative (Negative); Shiga Toxin PCR Negative (Negative); Shigella/Enteroinvasive Ecoli Negative (Negative)
[2022-03-27 17:08] LABS: Calprotectin <50.0 mcg/g
== END 2022-03-21 17:45 | disposition home or self-care (01) ==
LOC: LBN 17:44
PROVIDERS: PCP Student in an Organized Health Care Education/Training Program; Visit Provider Surgery
DX: R11.0 Nausea (principal); R19.7 Diarrhea, unspecified; R10.11 Right upper quadrant pain; R68.83 Chills (without fever); K86.89 Other specified diseases of pancreas; Z87.19 Personal history of other diseases of the digestive system
CPT/HCPCS: 87329; 87493; 87505; 87177

== ENCOUNTER 2022-03-22 08:43 | Outpatient (REF) | payer OTHER, SELFPAY | END 2022-03-22 08:44 | disposition home or self-care (01) | LOC: LBN 08:43 | PROVIDERS: PCP Student in an Organized Health Care Education/Training Program; Visit Provider Student in an Organized Health Care Education/Training Program | DX: R10.11 Right upper quadrant pain (principal); R19.7 Diarrhea, unspecified | CPT/HCPCS: 82710; 83993 ==

== ENCOUNTER 2022-03-23 11:49 | Emergency (ER) | payer OTHER, SELFPAY ==
[2022-03-23 12:06] VITALS: BP 146/94; PULSE 94; RESP 14; TEMP 37.1; O2SAT 100
--- NOTE | 2022-03-23 13:00 | DI.CT_ITS ---
Exam(s) CT ABDOMEN PELVIS W EXAM: CT ABDOMEN PELVIS W CLINICAL HISTORY: abdominal discomfort, hypoglycemia. TECHNIQUE: Imaging Protocol: Axial computed tomography images with coronal and sagittal reformatted images were created and reviewed CONTRAST MATERIAL: Intravenous: Omnipaque 350 Contrast volume:100 ml Oral: yes COMPARISON: No exams were available for comparison FINDINGS: Exam is limited by a motion artifact. ABDOMEN: Lung Bases: Patchy infiltrates left lower lobe. No effusion or pneumothorax. No pericardial effus ion. Liver: Normal density. No measurable mass. Gallbladder and biliary tract: No radiodense calculus or dilation. Pancreas: Normal density, no abnormal calcifications or inflammatory process. Spleen: Normal. Kidneys: Normal size, contour and axis. No radiodense stones or obstructive uropathy. No masses seen. Adrenal glands: No masses seen. Abdominal Aorta: Abdominal portion non-dilated. PELVIS: Bladder: No gross wall thickening. No calculi.No focal mass. Bowel: No obstruction or bowel wall thickening. Appendix normal. Peritoneal cavity: No ascites, collection or mesenteric inflammatory response. Bones: Within normal limits for age. Reproductive organs: Within normal limits. Lymph nodes: Unremarkable. Impression: Mild patchy left lower lobe infiltrates. Abdomen pelvic CT within normal limits. RADIATION DOSE DELIVERED: 989.43mGy.cm Total DLP DATA REPOSITORY: All CT scans at this facility are submitted to the National Radiology Data Registry (NRDR) Dose Index Registry (DIR) with the [employer] ([employer]). RADIATION OPTIMIZATION: All CT scans at this facility use at least one of these dose optimization te chniques: automated exposure control; mA and/or kV adjustment per patient size (includes targeted exa ms where dose is matched to clinical indication); or iterative reconstruction.
[2022-03-23 13:41] LABS: Abs Immature Grans 0.03 10^3/uL (0.0-0.06); Absolute Basophil Count 0.04 10^3/uL (0.0-0.2); Absolute Eosinophil Count 0.04 10^3/uL (0.0-0.7); Absolute Lymphocyte Count 1.24 10^3/uL (1.2-3.4); Absolute Monocyte Count 0.73 10^3/uL (0.1-0.8); Absolute Neutrophil Count 8.13 10^3/uL (1.2-6.7); Basophils % 0.4; Eosinophils % 0.4; HCT 39.9 % (36.0-46.0); HGB 12.8 g/dL (11.2-15.7); Immature Grans % 0.3; Lymphocytes % 12.1; MCH 26.7 pg (27.0-33.0); MCHC 32.1 % (32.0-36.0); MCV 83 fL (80-95); Monocytes % 7.1; Neutrophils % 79.7; Platelet Count 295 10^3/uL (130-400); RDW 12.5 % (11.7-14.6); RDW-SD 38.3 fL; WBC 10.21 10^3/uL (4.4-10.8)
[2022-03-23 13:55] LABS: ALT 16 U/L (14-59); AST 10 U/L (15-37); Albumin 3.7 g/dL (3.4-5.0); Alkaline Phosphatase 67 U/L (46-116); Anion Gap 8.2 mmol/L (3-11); BUN 17 mg/dL (7-18); Bilirubin, Total 0.3 mg/dL (0.2-1.0); CO2 26.8 mmol/L (21.0-32.0); CREATININE 0.7 mg/dL (0.55-1.02); Calcium 9.2 mg/dL (8.5-10.1); Chloride 109 mmol/L (98-107); Glucose 127 mg/dL (74-106); Lipase 71 U/L (73-393); Potassium 4.2 mmol/L (3.5-5.1); Sodium 144 mmol/L (136-145); Total Protein 7.7 g/dL (6.4-8.2)
--- NOTE | 2022-03-23 14:11 | W.ED.GENAD ---
Discharge Plan Disposition Patient Disposition: HOME Condition: Stable Discharge Details Clinical Impression: Low blood sugar reading, Infiltrate of lower lobe of left lung present on imaging study Primary Care Provider: Wanda Landrum ED Provider: [place] Home Meds and New Rx's Prescriptions: Continued cetirizine [Zyrtec] 10 mg tablet 10 mg PO DAILY Lubricant Dry Eye Relief 1 % drops, liquid gel 1 drp OP 4-6XD PRN PNV no.[id number] acid 28 mg iron- 800 mcg tablet 1 tab PO DAILY Label Comments: Chewable biotin 5 mg tablet 5 mg PO DAILY Rx Instructions: Pt uses chews. cholecalciferol (vitamin D3) 1,000 unit capsule 2,000 unit PO DAILY Label Comments: Chewable Systane Gel 0.3 % gel 1 drp OP HS Label Comments: 09/15/19 Opthalmology recommended cyclobenzaprine 10 mg tablet 10 mg PO HS PRN (Reason: muscle spasm) Qty: 10 1RF fluconazole 150 mg tablet 150 mg PO Q72H PRN (Reason: recurrent vaginal candidiasis assoc with menses.) Qty: 10 5RF Rx Instructions: take one tablet with onset of sx, may repeat in 72hrs if sx persist. ondansetron 4 mg tablet,disintegrating 1 tab PO PRN PRN sucralfate [Carafate] 1 gram tablet 1 g PO QACHS 14 Days Qty: 56 0RF Rx Instructions: Take before meals and at bedtime esomeprazole magnesium [Nexium] 20 mg capsule,delayed release(DR/EC) 40 mg PO DAILY Qty: 90 3RF Discontinued metformin 500 mg tablet 500 mg PO BID Qty: 60 3RF Discharge Instructions Additional Instructions: Chest imaging today revealed mild left lower lobe airspace disease. Please be sure to discuss this with your primary care physician follow-up. Use incentive spirometry every 2-3 hours while awake for the next week. Please follow-up with endocrinology. I recommend not starting metformin. Please contact your primary care physician to arrange follow-up. Return to the ER immediately for any worsening or new concerning symptoms. Referrals: [place] [place] - 1 week (Episodes of hypoglycemia) Discharge Data Discharge Date/Time-TO BE ENTERED AT DEPARTURE: 03/23/22 17:32 Medical Decision Making 1400 --36-year-old female with intermittent episodes of nausea, shaking chills that occur postprandially over the past 6 weeks as well as loose stool. Patient found to be hypoglycemic this morning and with inappropriately low blood sugar postprandially over the past 2 days. Patient has had significant recent work-up for GI illness including diagnostic labs, HIDA scan, abdominal ultrasound and endoscopy. Concern for potential inappropriate insulin secretion. Consider pancreatic mass. Plan to obtain CT of the abdomen pelvis. -- CT of the abdomen pelvis was interpreted by radiology:FINDINGS: Limitations: Motion artifact. Lungs: Left lower lobe airspace disease. No lung consolidation. Left lower lobe atelectasis. Liver: Normal. No mass. Gallbladder and bile ducts: Normal. No calcified stones. No ductal dilation. Pancreas: Normal. No ductal dilation. Spleen: Normal. No splenomegaly. Adrenal glands: Normal. No mass. Kidneys and ureters: Normal. No hydronephrosis. Stomach and bowel: Sigmoid colon diverticulosis. No dilated small are lateral to bowel loops. No bowel obstruction. Appendix: No evidence of appendicitis.EF Intraperitoneal space: Unremarkable. No free air. No significant fluid collection. Vasculature: Unremarkable. No abdominal aortic aneurysm. Lymph nodes: Unremarkable. No enlarged lymph nodes. Urinary bladder: Unremarkable as visualized. Reproductive: Midline uterus. No adnexal mass. Collapsing cyst right ovary measuring 17 mm. Bones/joints: Unremarkable. No acute fracture. Soft tissues: Unremarkable. IMPRESSION: 1. Left lower lobe pneumonia. 2. No acute abdominal or pelvic findings. CXR interpreted by radiology: Mild left lower lobe airspace disease. No lung consolidation. Left lower lobe pneumonia. Patient had normal blood sugar on chemistry and had two fingerstick blood sugars here that which were normal. Suspect malfunction of home glucometer. All results discussed with the patient. Patient denies cough and does not feel that she has pneumonia. She is concerned about potential aspiration pneumonitis post GI procedure. This certainly is a possibility. She declines antbiotic at this time but will monitor symptoms closely. Plan for dicharge with outpatient followup with PCP and endocrinaology. Disposition decision was made weighing the risks and benefits of hospitalization versus outpatient treatment, the risk for further decompensation, and the patient's wishes. The patient was stable. Prior to discharge, my usual and customary return precautions were reviewed with the patient - this included follow-up instructions and reason to return to the emergency department if condition worsens, does not improve as expected, or other new concerns arise. Medical Records Medical records reviewed: Yes I reviewed the patient's medical records. Lab Data Lab results reviewed: Yes I reviewed the patient's lab results. Labs: Laboratory Tests Range/Units 03/23/22 03/23/22 03/23/22 13:35 13:35 13:35 WBC (4.4-10.8) 10^3/uL 10.21 RBC (3.93-5.22) 10^6/uL 4.80 Hgb (11.2-15.7) g/dL 12.8 Hct (36.0-46.0) % 39.9 MCV (80-95) fL 83 MCH (27.0-33.0) pg 26.7 L MCHC (32.0-36.0) % 32.1 RDW (11.7-14.6) % 12.5 Plt Count (130-400) 10^3/uL 295 MPV (8.0-11.0) fL 11.0 Immature Gran % 0.3 Neutrophils % 79.7 Lymphocytes % 12.1 Monocytes % 7.1 Eosinophils % 0.4 Basophils % 0.4 Nucleated RBC % (0.0-0.3) % 0.0 Absolute Neutrophils (1.2-6.7) 10^3/uL 8.13 H Absolute Lymphocytes (1.2-3.4) 10^3/uL 1.24 Absolute Monocytes (0.1-0.8) 10^3/uL 0.73 Absolute Eosinophils (0.0-0.7) 10^3/uL 0.04 Absolute Basophils (0.0-0.2) 10^3/uL 0.04 Sodium (136-145) mmol/L 144 Potassium (3.5-5.1) mmol/L 4.2 Chloride (98-107) mmol/L 109 H Carbon Dioxide (21.0-32.0) mmol/L 26.8 Anion Gap (3-11) mmol/L 8.2 BUN (7-18) mg/dL 17 Creatinine (0.55-1.02) mg/dL 0.7 Estimated GFR/1.73 m2 (mL/min/1.73m2) >= 60.00 Glucose (74-106) mg/dL 127 H Calcium (8.5-10.1) mg/dL 9.2 Magnesium (1.8-2.4) mg/dL 2.0 Total Bilirubin (0.2-1.0) mg/dL 0.3 AST (15-37) U/L 10 L ALT (14-59) U/L 16 Alkaline Phosphatase (46-116) U/L 67 Total Protein (6.4-8.2) g/dL 7.7 Albumin (3.4-5.0) g/dL 3.7 Lipase (73-393) U/L 71 TSH (0.36-3.74) uIU/mL 0.71 HPI General Mode of arrival: ambulatory. Date/Time Provider Initiated Documentation: 03/23/22 12:19. Limitations to Documentation: no limitations. Information obtained by: patient. HPI Narrative: 36-year-old female presents with chief complaint of low blood sugar. Patient notes started to have episodes of shaking chills with associated nausea and loose stool postprandially at night about 6 weeks ago after returning from a trip to [facility]. She states she wakes up at night feeling nauseous and with chills. She notes intermittent episodes since initial. Episodes are always 1 to 3 hours postprandially. She also notes daily loose, foul-smelling and sticky stools that was persistent and now improving. She also notes that she had some tightness in her right upper quadrant. She has been seen by general surgery and had HIDA scan which is negative, right upper quadrant ultrasound which was negative, EGD which showed mild esophagitis and gastritis. Patient notes labs including LFTs and stool culture has been negative to date. Patient is concerned that she has had hypoglycemia recently. She notes she was feeling jittery and decided to check her blood sugar with her glucometer. She states that this morning blood sugar reading 50s - 60s. Postprandially yesterday blood sugar was in the 80s. She is concerned for potential for insulinoma or pancreatic disease. Related Data Home Medications Medication Instructions Recorded Confirmed carboxymethylcellulose sodium 1 % 1 drp ophthalmic (eye) 4-6XD PRN 12/24/18 03/23/22 eye liquid gel drops (Lubricant Dry Eye Relief) cetirizine 10 mg tablet (Zyrtec) 10 mg PO DAILY 12/24/18 03/23/22 artificial tears(hypromellose) 0.3 1 drp ophthalmic (eye) HS 09/16/19 03/23/22 % eye gel (Systane Gel) biotin 5 mg tablet 5 mg PO DAILY 09/16/19 03/23/22 cholecalciferol (vitamin D3) 25 2,000 unit PO DAILY 09/16/19 03/23/22 mcg (1,000 unit) capsule vitamins no.121-iron 28 1 tab PO DAILY 09/16/19 03/23/22 mg-folic acid 800 mcg tablet cyclobenzaprine 10 mg tablet 10 mg PO HS PRN muscle spasm #10 11/26/19 03/23/22 tabs fluconazole 150 mg tablet 150 mg PO Q72H PRN recurrent 10/10/20 03/23/22 vaginal candidiasis assoc with menses. #10 tabs esomeprazole magnesium 20 mg 40 mg PO DAILY #90 caps 03/20/22 03/23/22 capsule,delayed release (Nexium) ondansetron 4 mg disintegrating 1 tab PO PRN PRN 03/20/22 03/23/22 tablet sucralfate 1 gram tablet (Carafate) 1 g PO QACHS 14 days #56 tabs 03/20/22 03/23/22 Previous Rx's Medication Instructions Recorded cyclobenzaprine 10 mg tablet 10 mg PO HS PRN muscle spasm #10 11/26/19 tabs fluconazole 150 mg tablet 150 mg PO Q72H PRN recurrent 10/10/20 vaginal candidiasis assoc with menses. #10 tabs esomeprazole magnesium 20 mg 40 mg PO DAILY #90 caps 03/20/22 capsule,delayed release (Nexium) sucralfate 1 gram tablet (Carafate) 1 g PO QACHS 14 days #56 tabs 03/20/22 Allergies Allergy/AdvReac Type Severity Reaction Status Date / Time Penicillins Allergy Severe Anaphylaxis Verified 03/23/22 12:17 Sulfa (Sulfonamide Allergy Rash Verified 03/23/22 12:17 Antibiotics) General Stated Complaint: GenMedical LAMBERTO: 3 Review of Systems All systems reviewed & are unremarkable except as noted in HPI and below Constitutional Constitutional: Reports as per HPI Cardiovascular Cardiovascular: Denies chest pain Respiratory Respiratory: Denies cough Gastrointestinal Gastrointestinal: Reports as per HPI, Denies abdominal pain and Reports loose stools PFSH All Active Problems (Updated 03/23/22 @ 17:17 by [place] MD) Low blood sugar reading (Acute) Infiltrate of lower lobe of left lung present on imaging study (Acute) Change in bowel function (Acute) Diarrhea (Acute) Loose stool, multiple BMs, with intermittent diarrhea Migraine headache (Chronic) Vitamin D deficiency (Acute) Genital herpes (Acute) Hx of corneal abrasion (Chronic 08/2017) Ophtho ruled out Pit Adenoma, but noted OPTIC NERVE CUPPING. FOllow up needed. 07/07 FU scanned Candidiasis (Chronic) Near-monthly with menses.. Rosacea (Acute) Mild, seen by Derm 08/2019. Encounter for screening for other viral diseases (Acute) Abnormalities of hair (Acute) 08/29/20 Dr Rosales Hirsutism (Acute) 08/29/20 Dr Rosales - laser treatment Left breast mass (Acute) Menses, irregular (Acute) RUQ discomfort (Acute) Nausea (Acute) Postprandial distress syndrome (Acute) Medical History Bladder infection Colitis GERD (gastroesophageal reflux disease) IBS (irritable bowel syndrome) Pt. denies this Whooping cough Family History Father Hypertension Stroke Afib Hepatitis A Diabetes Mother Hypertension Multiple sclerosis Osteoarthritis Paternal Grandfather CAD (coronary artery disease) Myocardial infarction Diabetes Hypertension Paternal Grandmother Hypertension ESRD (end stage renal disease) Maternal Grandfather No problems noted. 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, [employer] Current gender identity: female What is your relationship status?: Panel score (0-1 are the most socially isolated patients): 1 What type of physical activity do you participate in: none Do you feel safe at home: Yes Do you feel safe in your relationship?: Yes History History 0 Para Hx # Term Pregnancies Multiple births Hx # Pregnancies Ectopic pregnancies AB induced Hx Number of Living Children AB spontaneous Exam Const General: cooperative and no acute distress HENMT Mouth: moist mucous membranes Eyes Conjunctivae: normal conjunctivae Sclera: normal sclerae Neck Neck: supple Thyroid: thyroid normal Resp Auscultation: clear to auscultation bilaterally, no rales, no rhonchi and no wheezes Cardio Rate: regular rate and not tachycardic Rhythm: regular rhythm GI Palpation: soft, not firm, no guarding, no masses, not rigid and nontender Skin General skin exam: no rashes or lesions noted Neuro General: patient alert, patient awake and tone normal Extrem General: no edema Psych Appearance: grossly normal Mental Status: mental status grossly normal Course Vital Signs Vital signs: Vital Signs Temperature 37.1 C 03/23/22 12:06 Pulse 94 H 03/23/22 12:06 Respiratory Rate 14 03/23/22 12:06 Blood Pressure 146/94 H 03/23/22 12:06 Pulse Oximetry 100 03/23/22 12:06 Temperature 37.1 C 03/23/22 12:06 Temperature Source Skin 03/23/22 12:06 Pulse 94 H 03/23/22 12:06 Respiratory Rate 14 03/23/22 12:06 Blood Pressure 146/94 H 03/23/22 12:06 Blood Pressure Position Sitting 03/23/22 12:06 Pulse Oximetry 100 03/23/22 12:06 Oxygen Delivery Method Room Air 03/23/22 12:06 Oxygen Flow Rate 0 03/23/22 12:06 Pain Level 0 03/23/22 12:06 Comment 03/23/22 12:06 Lab/Test Results Lab/Test Results: Laboratory Tests Range/Units 03/23/22 03/23/22 13:35 13:35 WBC (4.4-10.8) 10^3/uL 10.21 RBC (3.93-5.22) 10^6/uL 4.80 Hgb (11.2-15.7) g/dL 12.8 Hct (36.0-46.0) % 39.9 MCV (80-95) fL 83 MCH (27.0-33.0) pg 26.7 L MCHC (32.0-36.0) % 32.1 RDW (11.7-14.6) % 12.5 Plt Count (130-400) 10^3/uL 295 MPV (8.0-11.0) fL 11.0 Immature Gran % 0.3 Neutrophils % 79.7 Lymphocytes % 12.1 Monocytes % 7.1 Eosinophils % 0.4 Basophils % 0.4 Nucleated RBC % (0.0-0.3) % 0.0 Absolute Neutrophils (1.2-6.7) 10^3/uL 8.13 H Absolute Lymphocytes (1.2-3.4) 10^3/uL 1.24 Absolute Monocytes (0.1-0.8) 10^3/uL 0.73 Absolute Eosinophils (0.0-0.7) 10^3/uL 0.04 Absolute Basophils (0.0-0.2) 10^3/uL 0.04 Sodium (136-145) mmol/L 144 Potassium (3.5-5.1) mmol/L 4.2 Chloride (98-107) mmol/L 109 H Carbon Dioxide (21.0-32.0) mmol/L 26.8 Anion Gap (3-11) mmol/L 8.2 BUN (7-18) mg/dL 17 Creatinine (0.55-1.02) mg/dL 0.7 Estimated GFR/1.73 m2 (mL/min/1.73m2) >= 60.00 Glucose (74-106) mg/dL 127 H Calcium (8.5-10.1) mg/dL 9.2 Magnesium (1.8-2.4) mg/dL 2.0 Total Bilirubin (0.2-1.0) mg/dL 0.3 AST (15-37) U/L 10 L ALT (14-59) U/L 16 Alkaline Phosphatase (46-116) U/L 67 Total Protein (6.4-8.2) g/dL 7.7 Albumin (3.4-5.0) g/dL 3.7 Lipase (73-393) U/L 71
[2022-03-23 14:46] LABS: TSH (W/Ref FT4) 0.71 uIU/mL (0.36-3.74)
[2022-03-23] MEDS: Breeza Beverage 473 ML BTL 946 ML PO (15:08)
[2022-03-23] MEDS: Omnipaque 350 MG/ML 100 ML BTL IJ (15:09)
[2022-03-23 15:11] VITALS: BP 133/101; PULSE 96; TEMP 37.4; O2SAT 100
[2022-03-23] MEDS: Normal Saline Flush 10 ML SYR IVP (15:12)
[2022-03-23 15:13] VITALS: BP 133/101; PULSE 94
--- NOTE | 2022-03-23 15:59 | DI.VRAD_ITS ---
PROCEDURE INFORMATION: Exam: CT Abdomen And Pelvis With Contrast Exam date and time: 03/23/2022 2:56 PM Age: 36 years old Clinical indication: Other: Abdominal discomfort, hypoglycemia TECHNIQUE: Imaging protocol: Computed tomography of the abdomen and pelvis with contrast. Radiation optimization: All CT scans at this facility use at least one of these dose optimization techniques: automated exposure control; mA and/or kV adjustment per patient size (includes targeted exams where dose is matched to clinical indication); or iterative reconstruction. Contrast material: OMNIPAQUE 350; Contrast volume: 100 ml; Contrast route: INTRAVENOUS (IV); COMPARISON: US ABDOMEN LIMITED 03/12/2022 11:15 AM FINDINGS: Limitations: Motion artifact. Lungs: Left lower lobe airspace disease. No lung consolidation. Left lower lobe atelectasis. Liver: Normal. No mass. Gallbladder and bile ducts: Normal. No calcified stones. No ductal dilation. Pancreas: Normal. No ductal dilation. Spleen: Normal. No splenomegaly. Adrenal glands: Normal. No mass. Kidneys and ureters: Normal. No hydronephrosis. Stomach and bowel: Sigmoid colon diverticulosis. No dilated small are lateral to bowel loops. No bowel obstruction. Appendix: No evidence of appendicitis. Intraperitoneal space: Unremarkable. No free air. No significant fluid collection. Vasculature: Unremarkable. No abdominal aortic aneurysm. Lymph nodes: Unremarkable. No enlarged lymph nodes. Urinary bladder: Unremarkable as visualized. Reproductive: Midline uterus. No adnexal mass. Collapsing cyst right ovary measuring 17 mm. Bones/joints: Unremarkable. No acute fracture. Soft tissues: Unremarkable. IMPRESSION: 1. Left lower lobe pneumonia. 2. No acute abdominal or pelvic findings. Dictated and Authenticated by: Kayden Joyce MD. Ordering:BARBARA Pritchard MD
--- NOTE | 2022-03-23 16:00 | DI.RAD_ITS ---
Exam(s) XR CHEST 2V PA LATERAL EXAM: XR CHEST 2V PA LATERAL CLINICAL HISTORY: LLL pna on ct a/p?, 6 weeks chills intermittent TECHNIQUE: 2D digital imaging was performed. COMPARISON: None FINDINGS: MEDIASTINUM: Normal. HEART: Normal. PULMONARY VASCULATURE: Normal. LUNGS: Patchy densities above the left lung base suspicious for pneumonia. PLEURAL SPACE: No pleural effusion or pneumothorax. BONE:Unremarkable for age. IMPRESSION: Patchy infiltrate inferior left lower lobe. DATA REPOSITORY: RADIATION DOSE DELIVERED:
--- NOTE | 2022-03-23 16:24 | DI.VRAD_ITS ---
PROCEDURE INFORMATION: Exam: XR Chest Exam date and time: 03/23/2022 4:16 PM Age: 36 years old Clinical indication: Other: Lll pna on CT a/p? , 6 weeks chills intermittent TECHNIQUE: Imaging protocol: Radiologic exam of the chest. Views: 2 views. COMPARISON: CT ABDOMEN PELVIS W 03/23/2022 2:56 PM FINDINGS: Lungs: Mild left lower lobe airspace disease. No lung consolidation. Pleural spaces: Unremarkable. No pleural effusion. No pneumothorax. Heart/Mediastinum: Unremarkable. No cardiomegaly. Bones/joints: Unremarkable. IMPRESSION: Left lower lobe pneumonia. Dictated and Authenticated by: Kayden Joyce MD. Ordering:BARBARA Pritchard MD
[2022-03-23 16:32] VITALS: BP 132/80; PULSE 85; TEMP 37.7; O2SAT 96
[2022-03-23 17:31] VITALS: BP 132/80; PULSE 85; RESP 14; TEMP 37.7; O2SAT 96
== END 2022-03-23 17:32 | disposition home or self-care (01) ==
PROVIDERS: Emergency Provider Student in an Organized Health Care Education/Training Program; PCP Student in an Organized Health Care Education/Training Program
DX: E16.2 Hypoglycemia, unspecified (principal); R91.8 Other nonspecific abnormal finding of lung field
CPT/HCPCS: 36416; 80053; 82962; 83690; 99285; 71046; 74177; 83655; 83735; 84443; 85025; 99284; J3490

== ENCOUNTER 2022-11-03 19:43 | Outpatient (REF) | payer OTHER, SELFPAY ==
[2022-11-03 21:15] LABS: TSH 1.88 uIU/mL (0.36-3.74)
[2022-11-03 21:50] LABS: Vitamin D 25 Total 38.7 ng/mL (30-100)
[2022-11-05 10:48] LABS: Measles IgG Antibody Positive (See Note); Varicella IgG Antibody Positive (See Note)
[2022-11-05 10:57] LABS: Rubella IgG Ab (UVM) Positive (See Note)
[2022-11-05 13:00] LABS: Antimullerian Hormone 0.04 ng/mL (0.15-7.5)
[2022-11-06 20:40] LABS: 17-Hydroxyprogesterone 163 ng/dL
[2022-11-07 17:23] LABS: Dehydroepiandrosterone (DHEA) 4.2 ng/mL (<10)
[2022-11-08 09:29] LABS: Testosterone, Free 0.59 ng/dL (<0.13-1.00); Testosterone, Total 37 ng/dL (8-60)
[2022-11-09 01:22] LABS: Specimen WB Whole Blood
[2022-11-20 16:01] LABS: Result Summary NEGATIVE; Specimen WB Whole Blood
== END 2022-11-03 19:44 | disposition home or self-care (01) ==
LOC: LBN 19:43
PROVIDERS: PCP Student in an Organized Health Care Education/Training Program; Visit Provider Obstetrics & Gynecology
DX: Z31.69 Encounter for other general counseling and advice on procreation (principal); Z31.41 Encounter for fertility testing; L68.0 Hirsutism; Z13.21 Encounter for screening for nutritional disorder
CPT/HCPCS: 36415; 81220; 81222; 81329; 82306; 84402; 84403; 86787; 82626; 83498; 83520; 84443; 86762; 86765

== ENCOUNTER 2022-11-20 18:46 | Outpatient (REF) | payer OTHER, SELFPAY ==
[2022-11-21 17:51] LABS: Estradiol 236 pg/mL (See Note)
[2022-11-21 17:54] LABS: FSH 4.2 mIU/mL (See Note)
== END 2022-11-20 18:47 | disposition home or self-care (01) ==
LOC: LBO 18:46
PROVIDERS: PCP Student in an Organized Health Care Education/Training Program
DX: Z31.41 Encounter for fertility testing (principal)
CPT/HCPCS: 82670; 83001

== ENCOUNTER 2023-01-17 12:59 | Outpatient (CLI) | payer OTHER, SELFPAY ==
--- OUTSIDE RECORDS SUMMARY | 2023-01-17 13:01 | XMS_ITS | Continuity of Care Document ---
Author Name Unknown Organization [facility] Ambulatory Clinics Address [address] [place] [address] Encounter [facility] NBR [id number] Date(s): 07/22/22 - 07/22/22 [facility] Ambulatory Clinics [address] [place], [place] [address] Encounter Diagnosis Abnormal finding of hair(Discharge Diagnosis) - 07/19/22 Hirsutism(Discharge Diagnosis) - 07/19/22 Discharge Disposition: Home or Self Care Attending Physician: Avery Rosales, DO Assessment and Plan Future Appointments Medications NexIUM 20 mg oral delayed release capsule 1 Unknown, 0 Refill(s) Start Date: 07/19/22 Status: Ordered ZyrTEC 10 mg oral tablet 0 Refill(s) Start Date: 07/19/22 Status: Ordered Problem List Condition Confirmation Course Effective Dates Status Health [facility] Informant Abnormal hair finding Confirmed Active Hirsutism Confirmed Active
--- OUTSIDE RECORDS SUMMARY | 2023-01-17 13:01 | XMS_ITS | Continuity of Care Document ---
Author Name Unknown Organization [facility] Ambulatory Clinics Address [address] [place] [address] Care Team Providers Care Bank Secrecy Act Officer Name Role Phone DR. KARIS RODRIGUEZ Primary Care Physi [facility] Encounter [facility] [facility] NBR [id number] Date(s): 10/21/22 - 10/21/22 [facility] Ambulatory Clinics [address] [place], [place] [address] Encounter Diagnosis Abnormal hair finding(Discharge Diagnosis) - 10/17/22 Discharge Disposition: Home or Self Care Attending [...] hair finding Confirmed Active Hirsutism Confirmed Active Patient Care team information Personnel Name: DR. KARIS RODRIGUEZ Address: Address: [address] [place] [id number]
--- OUTSIDE RECORDS SUMMARY | 2023-01-17 13:01 | XMS_ITS | Continuity of Care Document ---
Author Name Unknown Organization [facility] Ambulatory Clinics Address [address] [place] [address] Care Team Providers Care Coil Winder Repair Name Role Phone DR. KARIS RODRIGUEZ Primary Care Physi [facility] Encounter [facility] NBR [id number] Date(s): 08/26/22 - 08/26/22 [facility] Ambulatory Clinics [address] [place], [place] [address] Encounter Diagnosis Abnormal hair finding(Discharge Diagnosis) - 08/23/22 Hirsutism(Discharge Diagnosis) - 08/23/22 Discharge Disposition: Home or Self Care Attending Physician: Avery Rosales DO Assessment and Plan Future Appointments Medications NexIUM 20 mg oral delayed release capsule 1 Unknown, 0 Refill(s) Start Date: 07/19/22 Status: Ordered ZyrTEC 10 mg oral tablet 0 Refill(s) Start Date: 07/19/22 Status: Ordered Problem List Condition Confirmation Course Effective Dates Status Health [facility] Informant Abnormal hair finding Confirmed Active Hirsutism Confirmed Active Physician Outpatient Note * Avery Rosales, DO: PERFORM, MODIFY Event Display: Office Clinic Note Physician Authored Date: [id number] CHANTEL SR :1985 Age:37 years Sex:Female Visit Date:08/26/2022 Chief Complaint Established- laser hair History of Present Illness Established laser patient in the office today for lip and chin hair removal. Patient's last treatment was 07/19/2022.?? Happy with the results, she is here for her second treatment??today, her other 2 were years ago pre-COVID. ??She has had no complications. Review of Systems Negative for: no new cardiac, respiratory, GI, , hematologic, neurologic, psychological, allergic, traumatic or endocrine problems except as listed above Physical Exam GENERAL APPEARANCE:??The patient is awake, alert, and oriented and in no acute distress, Appears nutritionally sound, Healthy in appearance, Voice is strong, with no stridor or stertor, Handling secretions without difficulty.?PSYCH:??affect normal, good eye contact, oriented to person, oriented to place, oriented to time.?NEURO:??CN's II-XII grossly intact, Gait is normal, The patient has endpoint nystagmus only.?HEENT:??The patient is normocephalic with a normal facies with cranial nerves 2 through 12 bilaterally equal and intact. Pupils are equal and reactive to light with extraocular movements bilaterally equal and intact. There is no proptosis or enophthalmos,?NECK:??There is no palpable lymphadenopathy.?SKIN:??normal across the head and neck.?MUSCULOSKELETAL:??normal gait and station.?? Procedure ? After discussing the treatment options along with the risks and complications including but not limited to purpura, hypopigmentation, hyperpigmentation, scarring, ulloa and blisters, herpes simplex virus activation, itching, consent was obtained and placed on the chart. The patient has agreed to the above procedure and understands the risks and benefits. The skin was wiped with rubbing alcohol and allowed to dry. The Gentle Max laser as was used for the laser cosmetic treatment, the patient tolerated the procedure well.?? postop instructions were reviewed with strict emphasis on sun exposure avoidance with sunblock at all times. The patient was discharged in stable condition was understanding of all their post procedure instructions ?? Roby, 8mm, 22J, 8ms, 1 Hz, 40/40 cooling ?? No evidence of excessive erythema or scarring or blistering post procedure, Arian- vera was applied, postoperative instructions were reviewed and provided. The patient tolerated the procedure well. Female recruitment assistant present for entire treatment process.?? Post Op??No evidence of excessive erythema or scarring or blistering post procedure, Arian-vera was applied, postoperative instructions were reviewedand provided. The patient tolerated the procedure well. Female recruitment assistant present for entire treatment process ?? Assessment/Plan 1.??Abnormal hair finding??L67.9 Laser #2 2.??Hirsutism??L68.0 Problem List/Past Medical History Ongoing Abnormal hair finding Hirsutism Historical No qualifying data Medications NexIUM 20 mg oral delayed release capsule ZyrTEC 10 mg oral tablet Allergies No active allergies Electronically Signed on 08/26/22 02:32 PM Avery Rosales, DO Patient Care team information Personnel Name: DR. KARIS RODRIGUEZ Address: Address: [address] [place] [id number] [place]
--- OUTSIDE RECORDS SUMMARY | 2023-01-17 13:01 | XMS_ITS | Continuity of Care Document ---
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 KARIS RODRIGUEZ Primary Care Physi [facility] Encounter [facility] NBR [phone] Date(s): 11/22/22 - 11/22/22 [facility] Ambulatory Clinics [address] [place] [address]- Encounter Diagnosis Abnormal hair finding(Discharge Diagnosis) - 11/18/22 Discharge Disposition: Home or Self Care Attending [...] Confirmed Active Physician Outpatient Note * Avery Rosales DO: PERFORM, MODIFY Event Display: Office Clinic Note Physician Authored Date: [id number] CHANTEL SR :1985 Age:37 years Sex:Female Visit Date:11/22/2022 Primary Care Physician: DR. KARIS RODRIGUEZ Chief Complaint Laser History of Present Illness Patient was last seen in our office on 10/21/22 for laser treatment of lip and chin hair. Energy wasincreased at last visit. 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 She is here today for laser #4 Review of Systems Fatigue?? Negative.?? Fever?? Negative.?? Weight Loss?? Negative.?? Snoring?? Negative.?? Hoarseness?? Negative.? Cough?? Negative.??Rashes?? Negative.?? Eczema?? Negative.?? Headaches?? Negative.?? Thyroid Problems?? Negative.? Environmental allergies?? Negative.?? Hay Fever?? Negative.?? Reflux?? Negative.?? Sleep apnea?? Negative.?? Procedure After discussing the treatment options along with [...] cosmetic treatment, the patient tolerated the procedure well. Sun block was applied and postop instructions were reviewed with strict emphasis on sun exposure avoidance with sunblock at all times. The patient was discharged in stable condition was understanding of all their post procedure instructions.. Bobby Class ., III. Laser ., [address]. Treatment Site ., Lip and chin . Treatment Area ., Face. Laser Settings Roby 8mm 28 J3 ms 1Hz no cooling. Post Op No evidence of excessive erythema or scarring or blistering post procedure, Arian- vera was applied, postoperative instructions were reviewed and provided. The patient tolerated the procedure well. 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 ?? Assessment/Plan 1.??Abnormal hair finding??L67.9 laser today Images $150 Problem List/Past Medical History Ongoing Abnormal hair finding Hirsutism Historical No qualifying data Medications NexIUM 20 mg oral delayed release capsule ZyrTEC 10 mg oral tablet Allergies No active allergies Electronically Signed on 11/21/22 04:58 PM Avery Rosales, DO Patient Care team information Care Team Personnel Name: DR. KARIS RODRIGUEZ Position: No Access Member Role: Primary Care Physician Address: Address: [address] [place] [phone] [place]
[2023-01-17 22:06] LABS: Progesterone 11.9 ng/mL (See Table)
[2023-01-20 18:47] LABS: D Farinae IgE <0.35 kU/L
== END 2023-01-17 13:00 | disposition home or self-care (01) ==
PROVIDERS: PCP Student in an Organized Health Care Education/Training Program
DX: Z31.41 Encounter for fertility testing (principal)
CPT/HCPCS: 84144; 86003

== ENCOUNTER 2023-02-04 16:17 | Outpatient (CLI) | payer OTHER, SELFPAY ==
[2023-02-04 15:46] LABS: Anion Gap 3.7 mmol/L (3-11); BUN 13 mg/dL (7-18); CO2 30.3 mmol/L (21.0-32.0); CREATININE 0.8 mg/dL (0.55-1.02); Calcium 8.9 mg/dL (8.5-10.1); Chloride 110 mmol/L (98-107); Estimated GFR 96.06 (mL/min/1.73m2); Glucose 93 mg/dL (74-106); Magnesium 2.1 mg/dL (1.8-2.4); Potassium 4.6 mmol/L (3.5-5.1); Sodium 144 mmol/L (136-145)
[2023-02-04 22:22] LABS: Progesterone 0.9 ng/mL (See Table)
[2023-02-04 22:50] LABS: FSH 37.9 mIU/mL (See Note)
== END 2023-02-04 16:18 | disposition home or self-care (01) ==
PROVIDERS: PCP Student in an Organized Health Care Education/Training Program; Visit Provider Student in an Organized Health Care Education/Training Program
DX: N83.8 Other noninflammatory disorders of ovary, fallopian tube and broad ligament (principal)
CPT/HCPCS: 36415; 80048; 83001; 83735; 84144

== ENCOUNTER 2023-02-10 03:59 | Outpatient (CLI) | payer OTHER, SELFPAY ==
--- NOTE | 2023-02-14 13:15 | W.PFT ---
Date of service: 02/11/23 Time of Service: 22:57 Pulmonary Function Test Result Indications: Nocturnal headaches Note: Overnight Oximetry Amount of time analyzed: 6 hours, 7 minutes Number of minutes under 88%: 0.2 MORALES: 0.8 Appearance of oxygen saturation pattern: Normal pattern Recommendation: No nocturnal oxygen recommended, no concerning findings for TUNDE Maribeth Logan MD Pulmonary & Critical Care Medicine Clinical Correlation therefore is recommended.
== END 2023-02-10 04:00 | disposition home or self-care (01) ==
LOC: RT 03:59
PROVIDERS: PCP Student in an Organized Health Care Education/Training Program; Visit Provider Student in an Organized Health Care Education/Training Program
DX: R00.2 Palpitations (principal); R51.9 Headache, unspecified; I20.8 Other forms of angina pectoris
CPT/HCPCS: 94762

== ENCOUNTER 2023-02-10 09:03 | Outpatient (CLI) | payer OTHER, SELFPAY | END 2023-02-10 09:04 | disposition home or self-care (01) | LOC: CARDOPNVT 09:03 | PROVIDERS: PCP Student in an Organized Health Care Education/Training Program; Visit Provider Student in an Organized Health Care Education/Training Program | DX: K30 Functional dyspepsia (principal); R00.2 Palpitations | CPT/HCPCS: 93246 ==

== ENCOUNTER 2023-02-16 12:29 | Outpatient (CLI) | payer OTHER, SELFPAY ==
[2023-02-16 17:34] LABS: Estradiol 149 pg/mL (See Note); Progesterone 2.7 ng/mL (See Table)
== END 2023-02-16 12:30 ==
LOC: LBO 06-03 12:29
PROVIDERS: PCP Student in an Organized Health Care Education/Training Program; Visit Provider Obstetrics & Gynecology
DX: Z31.41 Encounter for fertility testing (principal)
CPT/HCPCS: 36415; 82670; 84144

== ENCOUNTER 2023-02-18 11:36 | Outpatient (CLI) | payer OTHER, SELFPAY ==
[2023-02-18 22:32] LABS: Estradiol 149 pg/mL (See Note); Progesterone 2.6 ng/mL (See Table)
== END 2023-02-18 11:37 | disposition home or self-care (01) ==
LOC: LBO 11:36
PROVIDERS: PCP Student in an Organized Health Care Education/Training Program
DX: N97.9 Female infertility, unspecified (principal)
CPT/HCPCS: 36415; 82670; 84144

== ENCOUNTER 2023-02-20 23:04 | Outpatient (CLI) | payer OTHER, SELFPAY | END 2023-02-20 23:05 | disposition home or self-care (01) | LOC: DI.KIM 23:05 | PROVIDERS: PCP Student in an Organized Health Care Education/Training Program; Visit Provider Student in an Organized Health Care Education/Training Program | CPT/HCPCS: 93010 ==

== ENCOUNTER 2023-02-25 14:48 | Outpatient (CLI) | payer OTHER, SELFPAY ==
[2023-02-25 17:39] LABS: Estradiol 263 pg/mL (See Note); Progesterone 0.3 ng/mL (See Table)
== END 2023-02-25 14:49 | disposition home or self-care (01) ==
LOC: LBO 14:49
PROVIDERS: PCP Student in an Organized Health Care Education/Training Program; Visit Provider Obstetrics & Gynecology
DX: N97.9 Female infertility, unspecified (principal)
CPT/HCPCS: 36415; 82670; 84144

== ENCOUNTER 2023-02-27 09:56 | Outpatient (CLI) | payer OTHER, SELFPAY ==
[2023-02-27 19:35] LABS: Estradiol 348 pg/mL (See Note); Progesterone 0.3 ng/mL (See Table)
== END 2023-02-27 09:57 | disposition home or self-care (01) ==
LOC: LBO 10:09
PROVIDERS: PCP Student in an Organized Health Care Education/Training Program; Visit Provider Obstetrics & Gynecology Obstetrics
DX: N97.9 Female infertility, unspecified (principal)
CPT/HCPCS: 36415; 82670; 84144

== ENCOUNTER 2023-03-11 11:33 | Outpatient (CLI) | payer OTHER, SELFPAY | END 2023-03-11 11:34 | disposition home or self-care (01) | LOC: LBO 11:33 | PROVIDERS: PCP Student in an Organized Health Care Education/Training Program; Visit Provider Obstetrics & Gynecology Obstetrics | DX: N97.9 Female infertility, unspecified (principal) | CPT/HCPCS: 36415; 84144 ==

== ENCOUNTER 2023-03-13 10:56 | Outpatient (CLI) | payer OTHER, SELFPAY ==
--- NOTE | 2023-03-13 11:45 | W.CARDEVENT ---
Date of service: 03/13/23 Time of Service: 11:45 Cardiac Event Recorder Referring Provider:: Wanda Landrum Indications:: Palpitations Cardiac Event Note: This is a cardiac event monitor ordered for palpitations. Patient was monitored for total of 13 days and 12 hours Rhythm throughout was sinus with an average heart rate of 76. Minimum was 42, maximum 178 There were very rare ventricular ectopic beats There were occasional atrial premature beats. A total of 16 self-limited atrial runs occurred. The longest of these was 5 beats in duration There was no atrial fibrillation, no high-grade AV block, no pauses greater than 3 seconds Patient symptoms were reported which corresponded to sinus rhythm rate 75-95 there was no correlation to any dysrhythmia
== END 2023-03-13 10:57 | disposition home or self-care (01) ==
LOC: CARDOPNVT 10:56
PROVIDERS: PCP Student in an Organized Health Care Education/Training Program; Visit Provider Internal Medicine Cardiovascular Disease
DX: R00.2 Palpitations (principal); I49.1 Atrial premature depolarization

== ENCOUNTER 2023-03-22 10:15 | Outpatient (REF) | payer OTHER, SELFPAY ==
[2023-03-22 11:02] LABS: Abs Immature Grans 0.02 10^3/uL (0.0-0.06); Absolute Basophil Count 0.05 10^3/uL (0.0-0.2); Absolute Eosinophil Count 0.13 10^3/uL (0.0-0.7); Absolute Lymphocyte Count 2.09 10^3/uL (1.2-3.4); Absolute Monocyte Count 0.58 10^3/uL (0.1-0.8); Absolute Neutrophil Count 4.78 10^3/uL (1.2-6.7); Basophils % 0.7; Eosinophils % 1.7; HCT 40.1 % (36.0-46.0); HGB 12.5 g/dL (11.2-15.7); Immature Grans % 0.3; Lymphocytes % 27.3; MCH 25.7 pg (27.0-33.0); MCHC 31.2 % (32.0-36.0); MCV 83 fL (80-95); MPV 11.4 fL (8.0-11.0); Monocytes % 7.6; Neutrophils % 62.4; Platelet Count 377 10^3/uL (130-400); RBC 4.86 10^6/uL (3.93-5.22); RDW 14.2 % (11.7-14.6); RDW-SD 42.4 fL; WBC 7.65 10^3/uL (4.4-10.8)
[2023-03-22 22:38] LABS: Estradiol 15 pg/mL (See Note)
[2023-03-24 10:00] LABS: FSH 32.4 mIU/mL (See Note)
== END 2023-03-22 10:16 | disposition home or self-care (01) ==
LOC: LBO 10:15
PROVIDERS: PCP Student in an Organized Health Care Education/Training Program; Visit Provider Obstetrics & Gynecology Reproductive Endocrinology
DX: Z31.41 Encounter for fertility testing (principal)
CPT/HCPCS: 36415; 86850; 86900; 86901; 82670; 83001; 85025

== ENCOUNTER 2023-03-29 13:41 | Outpatient (REF) | payer OTHER, SELFPAY ==
[2023-03-29 10:49] LABS: HCG Quant, Pregnancy < 1 mIU/mL (1-3)
[2023-03-29 22:28] LABS: Estradiol <12 pg/mL (See Note); Progesterone 0.3 ng/mL (See Table)
[2023-03-31 09:29] LABS: LH 7.9 mIU/mL (See Note)
== END 2023-03-29 13:42 | disposition home or self-care (01) ==
LOC: LBO 13:41
PROVIDERS: PCP Student in an Organized Health Care Education/Training Program; Visit Provider Obstetrics & Gynecology Reproductive Endocrinology
DX: Z31.41 Encounter for fertility testing (principal)
CPT/HCPCS: 36415; 82670; 83002; 84144; 84702

== ENCOUNTER 2023-04-26 09:35 | Outpatient (CLI) | payer OTHER, SELFPAY ==
[2023-04-26 12:20] LABS: HCG Quant, Pregnancy < 1 mIU/mL (1-3)
== END 2023-04-26 09:36 | disposition home or self-care (01) ==
PROVIDERS: PCP Student in an Organized Health Care Education/Training Program; Visit Provider Obstetrics & Gynecology Reproductive Endocrinology
DX: Z31.41 Encounter for fertility testing (principal)
CPT/HCPCS: 36415; 84702

== ENCOUNTER 2023-07-02 22:21 | Outpatient (CLI) | payer OTHER, SELFPAY ==
[2023-07-03 18:37] LABS: Estradiol 116 pg/mL (See Note)
[2023-07-03 18:44] LABS: FSH 10.7 mIU/mL (See Note)
[2023-07-04 18:11] LABS: Antimullerian Hormone 0.16 ng/mL (0.03-5.5)
== END 2023-07-02 22:22 | disposition home or self-care (01) ==
LOC: LBO 22:23
PROVIDERS: PCP Student in an Organized Health Care Education/Training Program; Visit Provider Obstetrics & Gynecology Reproductive Endocrinology
DX: N97.9 Female infertility, unspecified (principal); Z31.41 Encounter for fertility testing
CPT/HCPCS: 36415; 82670; 83001; 83520

== ENCOUNTER 2023-07-30 19:24 | Outpatient (CLI) | payer OTHER, SELFPAY ==
[2023-07-30 14:41] LABS: HCG Quant, Pregnancy < 1 mIU/mL (1-3)
== END 2023-07-30 19:25 | disposition home or self-care (01) ==
LOC: LBO 19:24
PROVIDERS: PCP Student in an Organized Health Care Education/Training Program; Visit Provider Obstetrics & Gynecology Reproductive Endocrinology
DX: Z32.02 Encounter for pregnancy test, result negative (principal)
CPT/HCPCS: 36415; 84702

== ENCOUNTER 2023-09-26 21:55 | Outpatient (CLI) | payer OTHER, SELFPAY ==
[2023-09-26 15:45] LABS: Hemoglobin A1C 5.2 % (<5.7)
[2023-09-26 16:36] LABS: ALT 24 U/L (14-59); AST 15 U/L (15-37); Albumin 3.9 g/dL (3.4-5.0); Alkaline Phosphatase 86 U/L (46-116); Anion Gap 4.2 mmol/L (3-11); BUN 11 mg/dL (7-18); Bilirubin, Total 0.5 mg/dL (0.2-1.0); CO2 31.8 mmol/L (21.0-32.0); CREATININE 0.7 mg/dL (0.55-1.02); Calcium 9.2 mg/dL (8.5-10.1); Chloride 104 mmol/L (98-107); Estimated GFR 112.05 (mL/min/1.73m2); Glucose 86 mg/dL (74-106); Sodium 140 mmol/L (136-145); Total Protein 8.1 g/dL (6.4-8.2)
[2023-09-29 09:26] LABS: Prolactin 11.6 ng/mL (See Note)
== END 2023-09-26 21:56 | disposition home or self-care (01) ==
LOC: LBO 21:55
PROVIDERS: PCP Student in an Organized Health Care Education/Training Program; Visit Provider Obstetrics & Gynecology Reproductive Endocrinology
DX: Z31.41 Encounter for fertility testing (principal)
CPT/HCPCS: 36415; 80053; 83036; 84146

== ENCOUNTER 2023-12-01 12:13 | Outpatient (CLI) | payer OTHER, SELFPAY ==
[2023-12-01 11:19] LABS: Abs Immature Grans 0.01 10^3/uL (0.0-0.06); Absolute Basophil Count 0.04 10^3/uL (0.0-0.2); Absolute Eosinophil Count 0.12 10^3/uL (0.0-0.7); Absolute Monocyte Count 0.62 10^3/uL (0.1-0.8); Absolute Neutrophil Count 4.83 10^3/uL (1.2-6.7); Basophils % 0.5; Eosinophils % 1.6; HCT 38.5 % (36.0-46.0); HGB 12.3 g/dL (11.2-15.7); Immature Grans % 0.1; Lymphocytes % 24.3; MCH 26.6 pg (27.0-33.0); MCHC 31.9 % (32.0-36.0); MCV 83 fL (80-95); MPV 10.6 fL (8.0-11.0); Monocytes % 8.4; Neutrophils % 65.1; Platelet Count 312 10^3/uL (130-400); RBC 4.62 10^6/uL (3.93-5.22); RDW 13.8 % (11.7-14.6); RDW-SD 41.9 fL; WBC 7.42 10^3/uL (4.4-10.8)
[2023-12-01 11:44] LABS: HCG Quant, Pregnancy 2 mIU/mL (1-3)
[2023-12-01 11:48] LABS: ALT 22 U/L (14-59); AST 12 U/L (15-37); Albumin 3.8 g/dL (3.4-5.0); Alkaline Phosphatase 70 U/L (46-116); Anion Gap 6.8 mmol/L (3-11); BUN 8 mg/dL (7-18); CO2 30.2 mmol/L (21.0-32.0); CREATININE 0.7 mg/dL (0.55-1.02); Calcium 9.3 mg/dL (8.5-10.1); Calculated LDL 130 mg/dL (<100); Chloride 106 mmol/L (98-107); Cholesterol 199 mg/dL (<200); Estimated GFR 112.05 (mL/min/1.73m2); Glucose 95 mg/dL (74-106); HDL Cholesterol 60 mg/dL (40-60); Sodium 143 mmol/L (136-145); TSH (W/Ref FT4) 0.99 uIU/mL (0.36-3.74); Total Protein 7.4 g/dL (6.4-8.2); Triglyceride 46 mg/dL (<150)
[2023-12-01 12:01] LABS: Vitamin D 25 Total 36.4 ng/mL (30-100)
[2023-12-01 17:34] LABS: Progesterone 1.2 ng/mL (See Table)
[2023-12-01 17:56] LABS: FSH 53.3 mIU/mL (See Note); LH 28.2 mIU/mL (See Note)
[2023-12-02 13:23] LABS: Estradiol 23 pg/mL (See Note)
== END 2023-12-01 12:14 | disposition home or self-care (01) ==
PROVIDERS: PCP Student in an Organized Health Care Education/Training Program; Visit Provider Obstetrics & Gynecology Reproductive Endocrinology
DX: U09.9 Post COVID-19 condition, unspecified (principal); K25.9 Gastric ulcer, unspecified as acute or chronic, without hemorrhage or perforation; Z86.39 Personal history of other endocrine, nutritional and metabolic disease; Z86.2 Personal history of diseases of the blood and blood-forming organs and certain disorders involving the immune mechanism; R94.5 Abnormal results of liver function studies; Z87.898 Personal history of other specified conditions; Z91.89 Other specified personal risk factors, not elsewhere classified; Z13.220 Encounter for screening for lipoid disorders
CPT/HCPCS: 36415; 80053; 80061; 82306; 82670; 82679; 83001; 83002; 84144; 84443; 84702; 85025